=== PATIENT | male | born 1955 | race Caucasian/White ===

== ENCOUNTER 2024-04-21 11:20 | Inpatient (IN) | payer OTHER ==
[~2024-04-21] VITALS: Ht 177.8 cm; Wt 98.9 kg
--- NOTE | 2024-04-21 12:45 | DVH ---
CLINICAL INDICATION: TESTICLE PAIN DIABETIC FOOT TECHNIQUE: XY R FOOT 3 VIEW XRAY Comparison: None FINDINGS/IMPRESSION: There is no evidence of acute fracture or dislocation. Small volume soft-tissue gas in the region of the nailbed of the 1st digit.
[2024-04-21 12:52] LABS: Urine Bacteria None Seen /hpf (None Seen)
[2024-04-21 13:17] LABS: Urine Blood TRACE /uL (Negative); Urine Clarity Turbid (Clear); Urine Color Yellow (Yellow); Urine Mucus FEW (None Seen); Urine Protein, UAD 1+ (Negative); Urine Specific Gravity 1.016 (1.001-1.035); Urine Urobilinogen Normal (Negative); Urine WBC 34 /hpf (0 - 3); Urine WBC Clumps PRESENT /hpf (None Seen); Urine pH 5.5 (5.0-9.0)
--- NOTE | 2024-04-21 13:26 | DVH ---
ULTRASOUND OF SCROTUM AND CONTENTS. INDICATION: Right testicular pain COMPARISON: None TECHNIQUE: Multiple real-time grayscale sonographic and color and duplex Doppler images of the scrotu m and its contents were obtained. FINDINGS: The right testicle measures 4.6 x 3.2 x 2.2 cm. The left testicle measures 4.5 x 2.4 x 3.2 cm. Both testicles demonstrate homogeneous echotexture without evidence of focal lesions. The right epididymis measures 1.5 cm. The left epididymis measures 1.6 cm. Right epididymal head cyst measures 1.1 cm. Left epididymal head cyst measures 0.9 cm. Subsequent color and duplex Doppler interrogation of the testes demonstrated symmetric normal vascula r flow to both testicles. No focal areas of hyperemia were seen. Small volume fluid in the left inguinal canal. IMPRESSION: 1. No evidence of torsion, epididymitis, and/or orchitis.
[2024-04-21 14:13] LABS: Basophils # (auto) 0 10 ^3/uL (0-0.2); Basophils % (auto) 0.2 % (0.0-2.0); Eosinophils # (auto) 0 10 ^3/uL (0-0.8); Eosinophils % (auto) 0.2 % (0.0-7.0); Hematocrit 35.6 % (41.0-53.0); Hemoglobin 12.1 g/dL (13.5-17.5); Lymphocytes # (auto) 0.7 10 ^3/uL (0.4-5.4); Lymphocytes % (auto) 4.4 % (10.0-50.0); Mean Corpuscular Hemoglobin 28.2 pg (28.0-32.0); Mean Corpuscular Hgb Conc. 33.9 g/dL (32.0-36.0); Mean Corpuscular Volume 83.1 fL (80.0-100.0); Monocytes # (auto) 1.2 10 ^3/uL (0-1.3); Monocytes % (auto) 7.4 % (0.0-12.0); Neutrophils # (auto) 14.2 10 ^3/uL (1.6-8.6); Neutrophils % (auto) 87.8 % (37.0-80.0); Platelet Count (auto) 360 10^3/uL (140-450); Red Blood Cells 4.28 10^6/uL (4.5-5.90); Red Cell Distribution Width 14.3 % (11.8-14.3); White Blood Cell 16.1 10^3/uL (4.4-10.8)
--- NOTE | 2024-04-21 14:26 | ED.PDOC ---
History of Present Illness HPI Comments This 68 year old male presents to the emergency room secondary multiple complaints. His 1st complaint is a several month history of a ulcer to the plantar aspect of his right 1st toe. He has been followed by a wort extractor in [place]. However, over the last few weeks, history of been uncontrolled and he has increased erythema and discomfort to the 1st toe. He is also complaining of right scrotal pain and bilateral lower back pain. He denies fevers or chills but endorses general malaise. As modifying factors. Denies radiation of his symptoms. States his back pain is moderate to severe. Chief Complaint: Lower Extremity Time Seen by MD: 12:37 Primary Care Provider: OUT OF STATE Allergies: Coded Allergies: NO KNOWN ALLERGIES (Unverified , 04/21/24) Mode of Arrival: Ambulatory Constitutional: reports: fatigue, malaise, weakness; denies: chills, diaphoresis, fever, sweats EENTM: denies: blurred vision, double vision, ear bleeding, ear discharge, ear drainage, ear pain, ear ringing, eye pain, eye redness, hearing loss, mouth pain, mouth swelling, nasal discharge, nose bleeding, nose congestion, nose pain, photophobia, tearing, throat pain, throat swelling, voice changes, others Respiratory: denies: cough, hemoptysis, orthopnea, SOB at rest, shortness of breath, SOB with excertion, stridor, wheezing, others Cardiovascular: denies: chest pain, dizzy spells, diaphoresis, Dyspnea on exertion, edema, irregular heart beat, left arm pain, lightheadedness, palpitations, PND, syncope, others Gastrointestinal: denies: abdomen distended, abdominal pain, blood streaked bowels, constipated, diarrhea, dysphagia, difficulty swallowing, hematemesis, melena, nausea, poor appetite, poor fluid intake, rectal bleeding, rectal pain, vomiting, others Genitourinary: reports: burning, flank pain, pain, testicle pain; denies: i ncontinence, penile discharge, testicle swelling Neurological: denies: dizziness, fainting, numbness, paresthesia, speech problems, tingling, tremors Musculoskeletal: reports: back pain; denies: joint swelling, muscle pain, muscle stiffness Integumetry: denies: laceration, lesions, lumps Allergic/Immunocompromised: denies: Difficulty Healing Physical Exam General Appearance: No Apparent Distress, Normal HEENT: Normal ENT Inspection, Pharynx Normal, Scleral Icterus (L), TMs Normal Neck: Full Range of Motion, Non-Tender, Normal, Normal Inspection Respiratory: Chest Non-Tender, Lungs Clear, No Accessory Muscle Use, No Respiratory Distress, Normal Breath Sounds Cardiovascular: No Edema, No JVD, No Murmur, No Gallop, Normal Peripheral Pulses, Regular Rate/Rhythm Breast Exam: Deferred Gastrointestinal: No Organomegaly, Non Tender, No Pulsatile Mass, Normal Bowel Sounds, Soft Genitalia: Deferred Pelvic: Deferred Rectal: Deferred Extremities: Inflammation, Pedal edema, Swelling Neurologic: Alert, supervisor commissary production II-XII nml as Tested, No Motor Deficits, Normal Affect, Normal Mood, No Sensory Deficits Cerebellar Function: Normal Reflexes: NOT DONE Skin: Other (2 x 2 cm ulceration to the base of the right 1st toe. Erythema over the entirety of the toe with tracking up the foot.) Lymphatic: NOT DONE Was a procedure done? Was a procedure done?: No Differential Dx Considerations may include: Thrombophlebitis, diabetic ulcer, osteomyelitis X-Ray, Labs, Meds, VS Vital Signs Date Time Temp Pulse Resp B/P (MAP) Pulse Ox O2 Delivery O2 Flow Rate FiO2 04/21/24 15:44 66 16 96 Room Air* 0 21 04/21/24 15:44 99.0 66 16 121/65 (83) 96 99.0 04/21/24 12:00 98.9 73 16 106/48 (67) 96 Lab Test 04/21/24 13:48 04/21/24 12:09 04/21/24 12:08 Range/Units White Blood Count 16.1 H 4.4-10.8 10^3/uL Red Blood Count 4.28 L 4.5-5.90 10^6/uL Hemoglobin 12.1 L 13.5-17.5 g/dL Hematocrit 35.6 L 41.0-53.0 % Mean Corpuscular Volume 83.1 80.0-100.0 fL Mean Corpuscular Hemoglobin 28.2 28.0-32.0 pg Mean Corpuscular Hemoglobin Concent 33.9 32.0-36.0 g/dL Red Cell Distribution Width 14.3 11.8-14.3 % Platelet Count 360 140-450 10^3/uL Mean Platelet Volume 8.2 6.9-10.8 fL Neutrophils (%) (Auto) 87.8 H 37.0-80.0 % Lymphocytes (%) (Auto) 4.4 L 10.0-50.0 % Monocytes (%) (Auto) 7.4 0.0-12.0 % Eosinophils (%) (Auto) 0.2 0.0-7.0 % Basophils (%) (Auto) 0.2 0.0-2.0 % Neutrophils # (Auto) 14.2 H 1.6-8.6 10 ^3/uL Lymphocytes # (Auto) 0.7 0.4-5.4 10 ^3/uL Monocytes # (Auto) 1.2 0-1.3 10 ^3/uL Eosinophils # (Auto) 0 0-0.8 10 ^3/uL Basophils # (Auto) 0 0-0.2 10 ^3/uL Nucleated Red Blood Cells 0.0 % Sodium Level 135 L 136-145 mmol/L Potassium Level 4.3 3.5-5.1 mmol/L Chloride Level 102 98-107 mmol/L Carbon Dioxide Level 24 20-31 mmol/L Anion Gap 9 5-15 Blood Urea Nitrogen 37 H 9-23 mg/dL Creatinine 2.23 H 0.700-1.30 mg/dL Glomerular Filtration Rate Calc 32 >90 mL/min BUN/Creatinine Ratio 16.6 10.0-20.0 Serum Glucose 221 H 74-106 mg/dL Hemoglobin A1c 9.8 H <5.7 % A1C Calcium Level 8.8 8.7-10.4 mg/dL Total Bilirubin 0.7 0.2-1.0 mg/dL Aspartate Amino Transferase (AST) 17 13-40 U/L Alanine Aminotransferase (ALT) 21 7-40 U/L Alkaline Phosphatase 132 H 46-116 U/L Total Protein 6.2 5.7-8.2 g/dL Albumin 3.7 3.2-4.8 g/dL Beta-Hydroxybutyric Acid 0.325 < 0.4 mmol/L POC Glucose 216 H 70-106 mg/dl Urine Color Yellow Yellow Urine Clarity Turbid H Clear Urine pH 5.5 5.0-9.0 Urine Specific [place] 1.016 1.001-1.035 Urine Protein 1+ H Negative Urine Ketones Trace Negative Urine Blood Trace H Negative /uL Urine Nitrite Negative Negative Urine Bilirubin Negative Negative Urine Urobilinogen Normal Negative mg/dL Urine Leukocyte Esterase Negative Negative /uL Urine RBC 3 0 - 3 /hpf Urine WBC 34 0 - 3 /hpf Urine WBC Clumps Present None Seen /hpf Urine Squamous Epithelial Cells None seen <5 /hpf Urine Bacteria None seen None Seen /hpf Urine Mucus Few None Seen Urine Glucose 1+ H Normal mg/dL Current Medications Medications (Trade) Dose Ordered Sig/Torres Route Start Time Stop Time Status Last Admin Vancomycin HCl 200 ml @ 200 mls/hr ONCE ONCE IV 04/21/24 14:15 04/21/24 15:14 DC 04/21/24 15:39 X-Ray, Labs, Meds, VS Comment A 68-year-old male presents secondary to multiple complaints including scrotal pain in ulcer to the plantar aspect of the right 1st toe. The right toe is erythematous with tracking up the leg. He has a white count of 16.5. I am concerned the patient has thrombophlebitis and a diabetic ulcer to the foot. The patient was given 1 g of vancomycin in the ED and be admitted for further workup management of his diabetic ulcer. Time of 1ST Reevaluation: 14:18 Reevaluation 1ST: Unchanged Patient Education/Counseling: Diagnosis, Treatment, Prognosis Family Education/Counseling: No Family Present Sepsis Sepsis Reasesment Focused Exam Sepsis focused exam: focus exam completed Departure 1 Departure Time of Disposition: 14:19 Impression: Primary Impression: Diabetic ulcer of foot associated with diabetes mellitus due to underlying condition, with fat layer exposed Additional Impressions: Dysuria Back pain Disposition: [address] [place] [address] Admit to: Tele Condition: Fair Critical Care Note Critical Care Time?: No Stability Stability form required: No Heart Score Heart Score: Heart Score Response (Comments) Value History N/A 0 EKG N/A 0 Age N/A 0 Risk Factors N/A 0 Troponin N/A 0 Total 0 LINCOLN SONG BS Apr 21, 2024 14:26
[2024-04-21 14:42] LABS: Alanine Aminotransferase 21 U/L (7-40); Albumin 3.7 g/dL (3.2-4.8); Alkaline Phosphatase 132 U/L (46-116); Anion Gap 9 (5-15); Aspartate Aminotransferase 17 U/L (13-40); BUN/Creatinine Ratio 16.6 (10.0-20.0); Blood Urea Nitrogen 37 mg/dL (9-23); Calcium 8.8 mg/dL (8.7-10.4); Carbon Dioxide 24 mmol/L (20-31); Chloride 102 mmol/L (98-107); Glucose 221 mg/dL (74-106); Potassium 4.3 mmol/L (3.5-5.1); Sodium 135 mmol/L (136-145)
[2024-04-21 14:43] LABS: Bilirubin, Total 0.7 mg/dL (0.2-1.0); Total Protein 6.2 g/dL (5.7-8.2)
[2024-04-21] MEDS: VANCOMYCIN 1GM/200ML PREMIX 200 ML IV ONE (15:39)
[2024-04-21 15:44] VITALS: PULSE 66; RESP 16; O2SAT 96
[2024-04-21 16:15] VITALS: BP 135/61; PULSE 68; RESP 16; TEMP 99.6
--- NOTE | 2024-04-21 16:58 | DVHHP2 ---
History of Present Illness Reason for Visit: Diabetic foot ulcer History of Present Illness Carlos Du is a 68-year-old male with past medical history of hypertension, hyperlipidemia, diabetes, and depression, who came into the hospital for a diabetic foot ulcer, right testicular pain, and right back pain. Patient states that [place], he [place] here working. He has had this foot ulcer for several months and was following with podiatry back home, but has not been in to see anyone for a couple months. He states he injured his testicle a couple days ago getting out of his truck and at that time he also pulled a muscle in his back. Testicular ultrasound was completed by ER and came back normal. Review of Systems Constitutional: No: Fever, Chills, Sweats, Weakness, Malaise, Other Eyes: No: Pain, Vision change, Conjunctivae inflammation, Eyelid inflammation, Other, Redness ENT: No: Ear pain, Ear discharge, Nose pain, Nose discharge, Nose congestion, Mouth pain, Mouth swelling, Throat pain, Throat swelling, Other Respiratory: No: Cough, Dry, Shortness of breath, SOB with excertion, Wheezing, Hemoptysis, Pleuritic Pain, Sputum, Wheezing, Other Cardiovascular: No: Chest Pain, Palpitations, Orthopnea, Paroxysmal Noc. Dyspnea, Edema, Lt Headedness, Other Gastrointestinal: No: Nausea, Vomiting, Abdominal Pain, Diarrhea, Constipation, Melena, Hematochezia, Other Genitourinary: No Dysuria, No Frequency, No Incontinence, No Hematuria, No Retention; Other (testcular pain) Musculoskeletal: back pain; No: other, neck pain, shoulder pain, arm pain, hand pain, leg pain, foot pain Skin: Lesions (right great toe diabetic foot ulcer); No: Rash, Jaundice, Bruising, Other Neurological: No: Weakness, Numbness, Incoordination, Change in speech, Confusion, Seizures, Other Allergies: Coded Allergies: NO KNOWN ALLERGIES (Unverified , 04/21/24) Exam Vital Signs Vital Signs Date Time Temp Pulse Resp B/P (MAP) Pulse Ox O2 Delivery O2 Flow Rate FiO2 04/21/24 15:44 66 16 96 Room Air* 0 21 04/21/24 15:44 99.0 121/65 (83) 99.0 General Appearance: Alert, Oriented X3, Cooperative, moderate distress HEENT: Atraumatic, PERRLA Respiratory: Clear to auscultation, Normal air movement Cardiovascular: Regular rate, Normal S1, Normal S2 Abdominal: Normal bowel sounds, Soft, No tenderness Extremities: No clubbing, Normal pulses Skin: No rashes, No significant lesion (right great toe diabetic ulcer) Neuro: Normal gait, Normal speech, Strength at 5/5 X4 ext Psych/Mental Status: Mental status NL, Mood NL Labs/Xrays Labs Test 04/21/24 13:48 04/21/24 12:09 04/21/24 12:08 Range/Units White Blood Count 16.1 H 4.4-10.8 10^3/uL Red Blood Count 4.28 L 4.5-5.90 10^6/uL Hemoglobin 12.1 L 13.5-17.5 g/dL Hematocrit 35.6 L 41.0-53.0 % Mean Corpuscular Volume 83.1 80.0-100.0 fL Mean Corpuscular Hemoglobin 28.2 28.0-32.0 pg Mean Corpuscular Hemoglobin Concent 33.9 32.0-36.0 g/dL Red Cell Distribution Width 14.3 11.8-14.3 % Platelet Count 360 140-450 10^3/uL Mean Platelet Volume 8.2 6.9-10.8 fL Neutrophils (%) (Auto) 87.8 H 37.0-80.0 % Lymphocytes (%) (Auto) 4.4 L 10.0-50.0 % Monocytes (%) (Auto) 7.4 0.0-12.0 % Eosinophils (%) (Auto) 0.2 0.0-7.0 % Basophils (%) (Auto) 0.2 0.0-2.0 % Neutrophils # (Auto) 14.2 H 1.6-8.6 10 ^3/uL Lymphocytes # (Auto) 0.7 0.4-5.4 10 ^3/uL Monocytes # (Auto) 1.2 0-1.3 10 ^3/uL Eosinophils # (Auto) 0 0-0.8 10 ^3/uL Basophils # (Auto) 0 0-0.2 10 ^3/uL Nucleated Red Blood Cells 0.0 % Sodium Level 135 L 136-145 mmol/L Potassium Level 4.3 3.5-5.1 mmol/L Chloride Level 102 98-107 mmol/L Carbon Dioxide Level 24 20-31 mmol/L Anion Gap 9 5-15 Blood Urea Nitrogen 37 H 9-23 mg/dL Creatinine 2.23 H 0.700-1.30 mg/dL Glomerular Filtration Rate Calc 32 >90 mL/min BUN/Creatinine Ratio 16.6 10.0-20.0 Serum Glucose 221 H 74-106 mg/dL Hemoglobin A1c 9.8 H <5.7 % A1C Calcium Level 8.8 8.7-10.4 mg/dL Total Bilirubin 0.7 0.2-1.0 mg/dL Aspartate Amino Transferase (AST) 17 13-40 U/L Alanine Aminotransferase (ALT) 21 7-40 U/L Alkaline Phosphatase 132 H 46-116 U/L Total Protein 6.2 5.7-8.2 g/dL Albumin 3.7 3.2-4.8 g/dL Beta-Hydroxybutyric Acid 0.325 < 0.4 mmol/L POC Glucose 216 H 70-106 mg/dl Urine Color Yellow Yellow Urine Clarity Turbid H Clear Urine pH 5.5 5.0-9.0 Urine Specific [place] 1.016 1.001-1.035 Urine Protein 1+ H Negative Urine Ketones Trace Negative Urine Blood Trace H Negative /uL Urine Nitrite Negative Negative Urine Bilirubin Negative Negative Urine Urobilinogen Normal Negative mg/dL Urine Leukocyte Esterase Negative Negative /uL Urine RBC 3 0 - 3 /hpf Urine WBC 34 0 - 3 /hpf Urine WBC Clumps Present None Seen /hpf Urine Squamous Epithelial Cells None seen <5 /hpf Urine Bacteria None seen None Seen /hpf Urine Mucus Few None Seen Urine Glucose 1+ H Normal mg/dL XY R FOOT 3 VIEW XRAY Comparison: None FINDINGS/IMPRESSION: There is no evidence of acute fracture or dislocation. Small volume soft-tissue gas in the region of the nailbed of the 1st digit. ULTRASOUND OF SCROTUM AND CONTENTS. FINDINGS: The right testicle measures 4.6 x 3.2 x 2.2 cm. The left testicle measures 4.5 x 2.4 x 3.2 cm. Both testicles demonstrate homogeneous echotexture without evidence of focal l esions. The right epididymis measures 1.5 cm. The left epididymis measures 1.6 cm. Right epididymal head cyst measures 1.1 cm. Left epididymal head cyst measures 0.9 cm. Subsequent color and duplex Doppler interrogation of the testes demonstrated symmetric normal vascular flow to both testicles. No focal areas of hyperemia were seen. Small volume fluid in the left inguinal canal. IMPRESSION: 1. No evidence of torsion, epididymitis, and/or orchitis. Assessment/Plan Assessment/Plan Assessment: Diabetic ulcer of foot, Hypertension, Hyperlipidemia, Uncontrolled diabetes, Depression, Plan: Admit to Med-Surg, IV hydration, IV antibiotics, Consider CT of right foot ulcer if not improving, Consider podiatry consult if ulcer is not improving, Home medications reconciled, Accu checks Q AC&HS with sliding scale, Plan discussed with: Patient My Orders Orders - MARY ESTRELLAP Procedure Category Date Status Time Admit ADMIT 04/21/24 Verified 16:51 Code Status CODE 04/21/24 Verified 16:51 2 Gm Sodium Diet DIET 04/21/24 Verified Dinner Sodium Chloride Lock PHA 04/21/24 Verified (Saline Lock Ns) 22:00 Hydrocodone-Acet PHA 04/21/24 Verified 5/325mg Tab (Peoa 17:00 Ondansetron Hcl PHA 04/21/24 Verified (Zofran) 17:00 Docusate Sodium PHA 04/21/24 Verified Capsule (Colace 17:00 Complete Blood Count LAB 04/22/24 Verified 04:00 Comprehensive LAB 04/22/24 Verified Metabolic Panel 04:00 Condition: Serious LETI 04/21/24 Verified 16:51 Acetaminophen Tablet PHA 04/21/24 Verified (Tylenol Tablet) 17:00 Morphine Sulfate PHA 04/21/24 Verified Injection 17:00 Nitroglycerin PHA 04/21/24 Verified Sublingual (Ntrostat 17:00 Morphine Sulfate PHA 04/21/24 Verified Injection 17:00 Stat Ekg For Chest [facility] 04/21/24 Verified Pain 16:51 Notify Md Of Changes [facility] 04/21/24 Verified From Base 16:51 Dental Detail Representative For [facility] 04/21/24 Verified 24 Hours 16:51 Emergency Dysrhythmia [facility] 04/21/24 Verified Protocol 16:51 Rhythm Strips Once [facility] 04/21/24 Verified Every Shift 16:51 Oxygen By Nasal RT 04/21/24 Verified Cannula 16:51 Zosyn Extended PHA 04/21/24 Verified Infusion 22:00 NS PHA 04/21/24 Verified 17:00 * Wound Consult CONS 04/21/24 Verified Wound Culture W/ Gs RUT 10/23/24 Verified 16:51 Date of Service: Apr 21, 2024 Billing Provider: MARY ESTRELLA Common Visit Codes: [id number] INP/OBS CARE (MOD) MARY ESTRELLA Apr 21, 2024 16:58
[2024-04-21] MEDS ORDERED: ACETAMINOPHEN 325 MG TAB PO PRN (17:00)
[2024-04-21] MEDS ORDERED: NITROGLYCERIN 0.4 MG SL TAB SL PRN (17:00)
[2024-04-21] MEDS: SODIUM CHLORIDE 0.9% 1,000 ML IV ONE ×2 (17:00→18:15)
[2024-04-21] MEDS ORDERED: MORPHINE SULFATE INJ 2 MG/ml SYRG IV PRN (17:00)
[2024-04-21] MEDS ORDERED: ONDANSETRON HCL 4 MG/2 ML VIAL IV PRN (17:00)
[2024-04-21] MEDS ORDERED: DEXTROSE (50%) 50ML SYRG IV PRN (17:15)
[2024-04-21] MEDS ORDERED: AMLO1TAB23 PO (17:42)
[2024-04-21] MEDS ORDERED: DULO1CAP5 PO (17:42)
[2024-04-21] MEDS ORDERED: LISI40TA16 PO (17:42)
[2024-04-21] MEDS ORDERED: INSUINJ37 SC (17:42)
[2024-04-21 18:06] VITALS: BP 135/61; PULSE 68; RESP 16; TEMP 99.6; O2SAT 96
[2024-04-21 20:00] VITALS: PULSE 73; RESP 17; O2SAT 96
[2024-04-21] MEDS: PIPERACILLIN-TAZOB 3.375GM 100 ML IV SCH (20:30)
[2024-04-21 21:00] VITALS: BP 140/60; PULSE 73; RESP 17; TEMP 100; O2SAT 96
[2024-04-21] MEDS ORDERED: SODIUM CHLOR 0.9% PF (SALINE LOCK) 10ML VIAL/SYR IV SCH (22:00)
[2024-04-21] MEDS: DULoxetine HCL 30 MG CAP PO SCH (22:03)
[2024-04-21] MEDS: InsuLIN REG 1unit/0.01ml Soln (100units/ml) SC SCH (22:04)
[2024-04-21] MEDS: ACCU-CHEK COMFORT CURVE STRIP VI SCH (22:04)
[2024-04-22] VITALS (7 sets, daily range): BP systolic 95–146; BP diastolic 56–82; PULSE 69–91; RESP 17–22; TEMP 98–100.3; O2SAT 91–97
[2024-04-22] MEDS: MORPHINE SULFATE INJ 2 MG/ml SYRG IV PRN (00:33)
[2024-04-22 05:50] LABS: Basophils # (auto) 0 10 ^3/uL (0-0.2); Basophils % (auto) 0.2 % (0.0-2.0); Eosinophils # (auto) 0 10 ^3/uL (0-0.8); Eosinophils % (auto) 0.3 % (0.0-7.0); Hemoglobin 10.8 g/dL (13.5-17.5); Lymphocytes # (auto) 1.1 10 ^3/uL (0.4-5.4); Lymphocytes % (auto) 7.6 % (10.0-50.0); Mean Corpuscular Hemoglobin 27.7 pg (28.0-32.0); Mean Corpuscular Hgb Conc. 33.7 g/dL (32.0-36.0); Mean Corpuscular Volume 82.3 fL (80.0-100.0); Monocytes # (auto) 1.6 10 ^3/uL (0-1.3); Monocytes % (auto) 11.6 % (0.0-12.0); Neutrophils # (auto) 11.3 10 ^3/uL (1.6-8.6); Neutrophils % (auto) 80.3 % (37.0-80.0); Nucleated Red Blood Cells % 0.1 %; Platelet Count (auto) 354 10^3/uL (140-450); Red Blood Cells 3.89 10^6/uL (4.5-5.90); Red Cell Distribution Width 13.8 % (11.8-14.3)
[2024-04-22 05:56] LABS: Alanine Aminotransferase 16 U/L (7-40); Albumin 3.6 g/dL (3.2-4.8); Alkaline Phosphatase 111 U/L (46-116); Anion Gap 10 (5-15); Aspartate Aminotransferase 12 U/L (13-40); BUN/Creatinine Ratio 15.9 (10.0-20.0); Blood Urea Nitrogen 35 mg/dL (9-23); Calcium 8.7 mg/dL (8.7-10.4); Carbon Dioxide 22 mmol/L (20-31); Chloride 103 mmol/L (98-107); Glucose 179 mg/dL (74-106); Potassium 3.8 mmol/L (3.5-5.1); Sodium 135 mmol/L (136-145)
[2024-04-22 05:57] LABS: Bilirubin, Total 0.6 mg/dL (0.2-1.0); Total Protein 6.3 g/dL (5.7-8.2)
[2024-04-22] MEDS: InsuLIN REG 1unit/0.01ml Soln (100units/ml) SC SCH (06:32)
[2024-04-22] MEDS: INSULIN LANTUS (GLARGINE) 1 /0.01ml (100units/ml) SC SCH (09:35)
[2024-04-22] MEDS: LISINOPRIL 20 MG TAB PO SCH (09:43)
[2024-04-22] MEDS: amLODIPine BESYLATE 5 MG TAB PO SCH (09:43)
[2024-04-22] MEDS: HYDROcodone-ACET 5/325MG TAB PO PRN (12:09)
[2024-04-22] MEDS: CLINDAMYCIN 300MG IV 50 ML IV SCH (16:16)
--- NOTE | 2024-04-22 16:25 | DVHPN2 ---
Subjective Patient continues to report having right foot pain, localized in his great toe. Describes it as throbbing. Reviewed: Care Plan, H&P, Labs, Medications Changes from previous H/P or p: No Changes Eyes: No Pain, No Vision change, No Conjunctivae inflammation, No Eyelid inflammation, No Other, No Redness ENT: No Ear pain, No Ear discharge, No Nose pain, No Nose discharge, No Nose congestion, No Mouth pain, No Mouth swelling, No Throat pain, No Throat swelling, No Other Cardiovascular: No Chest Pain, No Palpitations, No Orthopnea, No Paroxysmal Noc. Dyspnea, No Edema, No Lt Headedness, No Other Respiratory: No Cough, No Dry, No Shortness of breath, No SOB with excertion, No Wheezing, No Hemoptysis, No Pleuritic Pain, No Sputum, No Other Gastrointestinal: No Nausea, No Vomiting, No Abdominal Pain, No Diarrhea, No Constipation, No Melena, No Hematochezia, No Other Genitourinary: No Dysuria, No Frequency, No Incontinence, No Hematuria, No Retention; Other (testcular pain) Musculoskeletal: No other, No neck pain, No shoulder pain, No arm pain; back pain; No hand pain, No leg pain, No foot pain Skin: No Rash; Lesions (right great toe diabetic foot ulcer); No Jaundice, No Bruising, No Other Objective Vitals Vital Signs Date Time Temp Pulse Resp B/P (MAP) Pulse Ox O2 Delivery O2 Flow Rate FiO2 04/22/24 12:51 99.2 71 21 146/69 (94) 94 99.2 04/22/24 08:00 Room Air* 0 21 Intake/Output Intake and Output 04/22/24 07:00 Intake Total 1075 ml Balance 1075 ml Intake Oral 875 ml IV Total 200 ml # Voids 1 General Appearance: Alert, Oriented X3 HEENT: Atraumatic, PERRLA Lungs: Clear to auscultation, Normal air movement Cardiovascular: Normal S1, Normal S2 Musculoskeletal: Normal sensory function, Normal motor function Skin: Wounds (See nurse notes and pictures) Psych/Mental Status: Mental status NL, Mood NL Medications Current Medications Medications Dose Ordered Sig/Torres Route Start Time Stop Time Status Last Admin Dose Admin Acetaminophen/ Hydrocodone Bitart 1 tab Q4HP PRN PO 04/21/24 17:00 04/22/24 12:09 1 TAB Ondansetron HCl 4 mg Q4HP PRN IV 04/21/24 17:00 Docusate Sodium 100 mg BIDPRN PRN PO 04/21/24 17:00 Acetaminophen 650 mg Q6HP PRN PO 04/21/24 17:00 Morphine Sulfate 2 mg Q4HPRN PRN IV 04/21/24 17:00 04/22/24 00:33 2 MG Nitroglycerin 0.4 mg Q5MINP PRN SL 04/21/24 17:00 Morphine Sulfate 2 mg Q30M PRN IV 04/21/24 17:00 Piperacillin Sod/ Tazobactam Sod 100 ml @ 25 mls/hr Q12H IV 04/21/24 20:00 04/22/24 09:28 25 MLS/HR Diagnostic Test (Pha) 1 strip ACHS 04/21/24 22:00 04/22/24 11:56 1 STRIP Insulin Human Regular HS SC 04/21/24 22:00 04/21/24 22:04 4 UNITS Insulin Human Regular AC SC 04/22/24 07:00 04/22/24 12:06 3 UNITS Dextrose 50 ml UD PRN IV 04/21/24 17:15 Amlodipine Besylate 10 mg DAILY PO 04/22/24 10:00 04/22/24 09:43 10 MG Insulin Glargine 50 units DAILY SC 04/22/24 10:00 04/22/24 09:35 50 UNITS Lisinopril 40 mg DAILY PO 04/22/24 10:00 04/22/24 09:43 40 MG Duloxetine HCl 30 mg BID PO 04/21/24 22:00 04/22/24 09:43 30 MG Clindamycin Phosphate 50 ml @ 50 mls/hr Q8HR IV 04/22/24 14:59 04/22/24 16:16 50 MLS/HR Laboratory Results Laboratory Tests 04/22/24 05:17 Chemistry Test 04/22/24 05:17 Albumin 3.6 g/dL (3.2-4.8) Calcium Level 8.7 mg/dL (8.7-10.4) Total Protein 6.3 g/dL (5.7-8.2) LFT Test 04/22/24 05:17 Alanine Aminotransferase (ALT) 16 U/L (7-40) Alkaline Phosphatase 111 U/L (46-116) Aspartate Amino Transferase (AST) 12 U/L (13-40) L Total Bilirubin 0.6 mg/dL (0.2-1.0) Urinalysis Test 04/21/24 12:08 Urine Color Yellow (Yellow) Urine Clarity Turbid (Clear) H Urine pH 5.5 (5.0-9.0) Urine Specific [place] 1.016 (1.001-1.035) Urine Protein 1+ (Negative) H Urine Ketones Trace (Negative) Urine Blood Trace /uL (Negative) H Urine Nitrite Negative (Negative) Urine Bilirubin Negative (Negative) Urine Urobilinogen Normal mg/dL (Negative) Urine Leukocyte Esterase Negative /uL (Negative) Urine RBC 3 /hpf (0 - 3) Urine WBC 34 /hpf (0 - 3) Urine WBC Clumps Present /hpf (None Seen) Urine Squamous Epithelial Cells None seen /hpf (<5) Urine Bacteria None seen /hpf (None Seen) Urine Mucus Few (None Seen) Urine Glucose 1+ mg/dL (Normal) H Labs and/or images reviewed: Labs reviewed by me, Image(s) reviewed by me Assessment/Plan Assessment/Plan Impression: -sepsis -diabetic foot wound, rule out osteomyelitis -chronic kidney disease stage IIIB -peripheral arterial disease -peripheral neuropathy -diabetic retinopathy -obesity -primary hypertension Plan: -podiatry consultation -continue Zosyn, and clindamycin -continue gentle IV hydration -check ESR, CRP -pain management: Soma for back spasms, [place] for foot pain -antihypertensives -repeat labs in a.m. -wound care consultation -further course of care per recommendations by Podiatry Total time spent with patient discussing and formulating plan of care: 35 minutes. This medical document was created using an electronic medical record system with [employer] dictation system. Although this document has been carefully reviewed, there may still be some phonetic and typographical errors. These areas are purely typographical due to imperfections of the software programs, and do not reflect any compromise in the patient's medical care. Plan discussed with: Patient, Other (RN) My Orders Orders - DARCIE THORNTON NP Procedure Category Date Status Time Cleanse Wound With LETI 04/22/24 In Process Wound Clean 10:08 Erythrocyte LAB 04/22/24 In Process Sedimentation Rate 14:50 Clindamycin 300mg Iv PHA 10/24/24 In Process (Cleocin Iv) 14:59 Blood Culture RUT 04/22/24 Transmitted 16:19 *Podiatry Consult CONS 04/22/24 Transmitted Mehreenon(Dvmg) 16:19 Basic Metabolic Panel LAB 04/23/24 Verified 04:00 Complete Blood Count LAB 04/23/24 Verified 04:00 Date of Service: Apr 22, 2024 Billing Provider: DARCIE THORNTON NP Common Visit Codes: [id number] INP/OBS CARE(HIGH) DARCIE THORNTON NP Apr 22, 2024 16:25
[2024-04-22] MEDS ORDERED: HYDROcodone-ACET 5/325MG TAB PO PRN (16:30)
[2024-04-22 16:38] LABS: Erythrocyte Sedimentation Rate 92 mm/hr (0-20)
[2024-04-22] MEDS ORDERED: ACETAMINOPHEN 325 MG TAB PO PRN (16:45)
[2024-04-23] VITALS (9 sets, daily range): BP systolic 129–153; BP diastolic 47–76; PULSE 61–73; RESP 16–20; TEMP 98–99.6; O2SAT 91–97
[2024-04-23 06:02] LABS: Chloride 105 mmol/L (98-107); Potassium 3.7 mmol/L (3.5-5.1); Sodium 135 mmol/L (136-145)
[2024-04-23 06:03] LABS: Anion Gap 9 (5-15); Calcium 8.9 mg/dL (8.7-10.4); Carbon Dioxide 21 mmol/L (20-31)
[2024-04-23 06:08] LABS: BUN/Creatinine Ratio 16.8 (10.0-20.0); Blood Urea Nitrogen 30 mg/dL (9-23); Glucose 126 mg/dL (74-106)
[2024-04-23 06:17] LABS: Basophils # (auto) 0 10 ^3/uL (0-0.2); Basophils % (auto) 0.3 % (0.0-2.0); Eosinophils # (auto) 0 10 ^3/uL (0-0.8); Eosinophils % (auto) 0.2 % (0.0-7.0); Hematocrit 32.8 % (41.0-53.0); Hemoglobin 11.2 g/dL (13.5-17.5); Mean Corpuscular Hemoglobin 28.1 pg (28.0-32.0); Mean Corpuscular Hgb Conc. 34.2 g/dL (32.0-36.0); Mean Corpuscular Volume 82.2 fL (80.0-100.0); Monocytes # (auto) 1.4 10 ^3/uL (0-1.3); Monocytes % (auto) 9.8 % (0.0-12.0); Neutrophils # (auto) 11.9 10 ^3/uL (1.6-8.6); Neutrophils % (auto) 82.7 % (37.0-80.0); Platelet Count (auto) 448 10^3/uL (140-450); Red Blood Cells 3.99 10^6/uL (4.5-5.90); Red Cell Distribution Width 13.9 % (11.8-14.3); White Blood Cell 14.4 10^3/uL (4.4-10.8)
--- NOTE | 2024-04-23 09:50 | DVHINCON2 ---
Date Seen: Apr 23, 2024 Reason for Consultation Right foot wound History of Present Illness Carlos Du is a 68-year-old male with past medical history of hypertension, hyperlipidemia, diabetes, and depression, who came into the hospital for a diabetic foot ulcer, right testicular pain, and right back pain. Patient states that [place], he [place] here working. He has had this foot ulcer for several months and was following with podiatry back home, but has not been in to see anyone for a couple months. He states he injured his testicle a couple days ago getting out of his truck and at that time he also pulled a muscle in his back. Testicular ultrasound was completed by ER and came back normal. Past Medical History See H&P Past Surgical History See H&P Family History: Diabetes mellitus G8 MOTHER G8 FATHER Allergies: Coded Allergies: NO KNOWN ALLERGIES (Unverified , 04/21/24) Home Meds Reported Medications Duloxetine HCl (Duloxetine HCl) 30 Mg Cap, 1 CAP PO BID 04/21/24 Insulin Glargine (Lantus Solostar) 100 Unit/Ml Inj, 50 UNITS SC DAILY 04/21/24 Lisinopril (Lisinopril) 40 Mg Tab, 1 TAB PO DAILY 04/21/24 Amlodipine Besylate (Amlodipine Besylate) 10 Mg Tab, 1 TAB PO DAILY 04/21/24 Current Medications Current Medications Medications (Trade) Dose Ordered Sig/Torres Route PRN Reason Start Time Stop Time Status Last Admin Amlodipine Besylate (Norvasc Tablet) 10 mg DAILY PO 04/22/24 10:00 04/23/24 09:34 Insulin Glargine (Lantus) 50 units DAILY SC 04/22/24 10:00 04/22/24 09:35 Lisinopril (Zestril Tablet) 40 mg DAILY PO 04/22/24 10:00 04/23/24 09:35 Clindamycin Phosphate 50 ml @ 50 mls/hr Q8HR IV 04/22/24 14:59 04/23/24 05:55 Acetaminophen/ Hydrocodone Bitart ([place] 5/325MG Tab) 1 tab Q6HPRN PRN PO MILD PAIN (1-3 PAIN SCALE) 04/22/24 16:30 Carisoprodol (Soma Tablet) 350 mg [id number] PRN PO FOR MUSCLE SPASM 04/22/24 16:30 Acetaminophen (Tylenol Tablet) 650 mg Q6HP PRN PO TEMP>100.4 04/22/24 16:45 Vital Signs Vital Signs Date Time Temp Pulse Resp B/P (MAP) Pulse Ox O2 Delivery O2 Flow Rate FiO2 04/23/24 09:35 147/76 04/23/24 05:00 98.0 64 16 94 98.0 04/22/24 20:00 Room Air* 0 21 Physical Exam DERMATOLOGIC EXAM: - Skin is dry and cool to the touch dry bilaterally. - Nails 1-5 of the bilateral foot are thickened, discolored, dystrophic, and tender to palpate with subungual debris - Hair loss noted to bilateral feet Wound #1: Location: A medial hallux Measurements: Length 1 cm x width 1 cm x depth on cm. Wound margins: Hyperkeratotic. Wound base: Full thickness. General Appearance: Fibrotic hyperkeratotic Probes to Bone: Yes Purulent drainage: No Serous drainage: No Erythema: Wound VASCULAR EXAM: - DP and PT pulses are palpable bilaterally. 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 - Feet are cool to touch compared to lower legs bilaterally. NEUROLOGIC EXAM: - Normal light touch sensation to the superficial peroneal, deep peroneal, sural, saphenous, and tibial nerve branches. - Protective sensation is diminished as tested with a 5.07 10g [place]-Sam bilaterally. MUSCULOSKELETAL EXAM: - No gross deformities - Muscle strength is 5/5 and active motion is pain-free and symmetrical bilaterally - No pain or crepitation with passive range of motion bilaterally to all major pedal joints Labs/Diagnostic Data Labs Test 04/23/24 09:13 04/23/24 05:27 04/22/24 05:17 04/21/24 19:32 Range/Units POC Glucose 146 H 70-106 mg/dl White Blood Count 14.4 H 4.4-10.8 10^3/uL Red Blood Count 3.99 L 4.5-5.90 10^6/uL Hemoglobin 11.2 L 13.5-17.5 g/dL Hematocrit 32.8 L 41.0-53.0 % Mean Corpuscular Volume 82.2 80.0-100.0 fL Mean Corpuscular Hemoglobin 28.1 28.0-32.0 pg Mean Corpuscular Hemoglobin Concent 34.2 32.0-36.0 g/dL Red Cell Distribution Width 13.9 11.8-14.3 % Platelet Count 448 140-450 10^3/uL Mean Platelet Volume 7.8 6.9-10.8 fL Neutrophils (%) (Auto) 82.7 H 37.0-80.0 % Lymphocytes (%) (Auto) 7.0 L 10.0-50.0 % Monocytes (%) (Auto) 9.8 0.0-12.0 % Eosinophils (%) (Auto) 0.2 0.0-7.0 % Basophils (%) (Auto) 0.3 0.0-2.0 % Neutrophils # (Auto) 11.9 H 1.6-8.6 10 ^3/uL Lymphocytes # (Auto) 1.0 0.4-5.4 10 ^3/uL Monocytes # (Auto) 1.4 H 0-1.3 10 ^3/uL Eosinophils # (Auto) 0 0-0.8 10 ^3/uL Basophils # (Auto) 0 0-0.2 10 ^3/uL Nucleated Red Blood Cells 0.0 % Sodium Level 135 L 136-145 mmol/L Potassium Level 3.7 3.5-5.1 mmol/L Chloride Level 105 98-107 mmol/L Carbon Dioxide Level 21 20-31 mmol/L Anion Gap 9 5-15 Blood Urea Nitrogen 30 H 9-23 mg/dL Creatinine 1.79 H 0.700-1.30 mg/dL Glomerular Filtration Rate Calc 41 >90 mL/min BUN/Creatinine Ratio 16.8 10.0-20.0 Serum Glucose 126 H 74-106 mg/dL Calcium Level 8.9 8.7-10.4 mg/dL Erythrocyte Sedimentation Rate 92 H 0-20 mm/hr Total Bilirubin 0.6 0.2-1.0 mg/dL Aspartate Amino Transferase (AST) 12 L 13-40 U/L Alanine Aminotransferase (ALT) 16 7-40 U/L Alkaline Phosphatase 111 46-116 U/L C-Reactive Protein High Sensitivity > 20.00 H <1.0 mg/dL Total Protein 6.3 5.7-8.2 g/dL Albumin 3.6 3.2-4.8 g/dL Test 04/21/24 13:48 04/21/24 12:08 Range/Units Hemoglobin A1c 9.8 H <5.7 % A1C Beta-Hydroxybutyric Acid 0.325 < 0.4 mmol/L Urine Color Yellow Yellow Urine Clarity Turbid H Clear Urine pH 5.5 5.0-9.0 Urine Specific [place] 1.016 1.001-1.035 Urine Protein 1+ H Negative Urine Ketones Trace Negative Urine Blood Trace H Negative /uL Urine Nitrite Negative Negative Urine Bilirubin Negative Negative Urine Urobilinogen Normal Negative mg/dL Urine Leukocyte Esterase Negative Negative /uL Urine RBC 3 0 - 3 /hpf Urine WBC 34 0 - 3 /hpf Urine WBC Clumps Present None Seen /hpf Urine Squamous Epithelial Cells None seen <5 /hpf Urine Bacteria None seen None Seen /hpf Urine Mucus Few None Seen Urine Glucose 1+ H Normal mg/dL Assessment ASSESSMENT: Patient is a 68-year-old male seen on the floor for a worsening right foot wound PLAN: - The patients chart was reviewed, clinical findings were discussed with the patient, the etiologies of the conditions were discussed in detail, and a treatment plan was agreed to at this time, with both oral and written instructions provided. - discussed with the patient that there is concern for deeper infection with the free air seen the x-ray - recommend we take him to the OR to perform an incision and drainage and clean out the wound and then attempt to close it - patient has been NPO since midnight - we will get cultures in the OR - continue antibiotics - patient likely can be discharged after procedure All questions were answered and concerns addressed to the patient's satisfaction. The patient was given the phone number to the clinic and was told how to make contact with the clinic should any concerns or questions arise. Patient understands that if any questions or concerns arise prior to the next appointment, we should be contacted immediately. FOLLOW-UP: We will follow inpatient Problems(with codes): (1) Back pain (2) Dysuria (3) Diabetic ulcer of foot associated with diabetes mellitus due to underlying condition, with fat layer exposed Plan discussed with: Patient Date of Service: Apr 23, 2024 Billing Provider: GILMAR SMITH DPM Common Visit Codes: [id number] INP/OBS CARE (MOD) GILMAR SMITH DPM Apr 23, 2024 09:50
--- NOTE | 2024-04-23 09:56 | DVH ---
CHEST RADIOGRAPH Indication:PRE OP /pain Technique: Single frontal view of the chest was obtained Comparison: None FINDINGS: Lines and Tubes: None Lungs: No focal consolidation. Pleura: No effusion. No pneumothorax. Cardiomediastinal contours: Unremarkable Bones: No acute osseous abnormality. IMPRESSION: No acute cardiopulmonary disease.
[2024-04-23 10:23] LABS: INR 1.04 (0.9-1.15); Partial Thromboplastin Time 38.7 SEC (24.5-34.5)
[2024-04-23] MEDS: BUPIVACAINE HCL 50 ML ONE (10:35)
[2024-04-23] MEDS ORDERED: ONDANSETRON HCL 4 MG/2 ML VIAL ONE (10:42)
[2024-04-23] MEDS ORDERED: PROPOFOL 10 MG/ML 20 ML IV ONE (10:42)
[2024-04-23] MEDS: VANCOMYCIN HCL 1000 MG VL ONE (10:56)
--- NOTE | 2024-04-23 11:06 | DVHOP2 ---
Operative Report - 2 Report Details Date: 04/23/24 Preop Diagnosis: 1. Right foot abscess 2. Right foot chronic diabetic ulcer 3. Right foot cellulitis Postop Diagnosis: Same as preop Surgeon: Gilmar Smith MD Anesthesiologist: See anesthesia Anesthesia: Mac Drains: None Implant: None Consent: The patient was informed of the risks and benefits of the procedure. These include but are not limited to complications of anesthesia, postoperative infection, incomplete relief of symptoms, recurrence of symptoms, damage to blood vessels, nerves and tendons, deep venous thrombosis, pulmonary embolism and possible need for repeat surgery in the future. Complications: None Estimated Blood Loss: Minimal Fluids: See anesthesia Findings: Proximally 2 cc of purulent drainage from the right medial hallux Indications for Surgery: Worsening right foot wound Name of Procedure Performed 1. Right foot I&D to bone (09843) Procedure Details Procedure Details: PRE-PROCEDURE INFORMATION: In the pre-op holding area, the extremity to be operated on was clearly marked and the patient verified correct laterality of the marking. The patient was transferred to the OR table and placed in a supine position. A timeout was performed in which identification of the correct patient , procedure, location, and materials was done. The right foot and leg were prepped and draped in normal sterile fashion. DESCRIPTION OF PROCEDURE: Attention was directed to the right medial hallux where area of fluctuance was noted. An incision was made over this area and was deepened through blunt dissection. The incision was deepened to the level of abscess and bone. Care was taken to the dissection to avoid any neurovascular and tendinous structures. The incision was deepened to the the abscess. The abscess appeared to be purulent fluid consistent with pus, with a proximally 2 cc of drainage. After the abscess was drained, the area was irrigated with 3 L normal saline using cysto tubing. Deep cultures were then obtained from the medial ankle. The area was then inspected and any areas of tracking, especially along the tendons were also drained. The wound appeared to be clean it was decided to close with vancomycin powder in the incision. The wound was closed with 2-0 nylon. A dry sterile dressing was placed on the surgical extremity. The patient was placed in a postop shoe. POSTOPERATIVE INFORMATION: The patient tolerated the above noted procedure and anesthesia well and was transferred to the PACU with vital signs stable, and vascular status intact with capillary refill intact to all digits. Patient can return to the floor. Patient can be discharged on p.o. antibiotics. Patient can weightbear in the postoperative shoe. Condition Good Disposition Still a Patient GILMAR SMITH DPM Apr 23, 2024 11:06
--- NOTE | 2024-04-23 12:02 | DVHPN2 ---
Subjective Patient continues to report having right foot pain, localized in his great toe. Describes it as throbbing. Reviewed: Care Plan, H&P, Labs, Medications Changes from previous H/P or p: No Changes Eyes: No Pain, No Vision change, No Conjunctivae inflammation, No Eyelid inflammation, No Other, No Redness ENT: No Ear pain, No Ear discharge, No Nose pain, No Nose discharge, No Nose congestion, No Mouth pain, No Mouth swelling, No Throat pain, No Throat swelling, No Other Cardiovascular: No Chest Pain, No Palpitations, No Orthopnea, No Paroxysmal Noc. Dyspnea, No Edema, No Lt Headedness, No Other Respiratory: No Cough, No Dry, No Shortness of breath, No SOB with excertion, No Wheezing, No Hemoptysis, No Pleuritic Pain, No Sputum, No Other Gastrointestinal: No Nausea, No Vomiting, No Abdominal Pain, No Diarrhea, No Constipation, No Melena, No Hematochezia, No Other Genitourinary: No Dysuria, No Frequency, No Incontinence, No Hematuria, No Retention; Other (testcular pain) Musculoskeletal: No other, No neck pain, No shoulder pain, No arm pain; back pain; No hand pain, No leg pain, No foot pain Skin: No Rash; Lesions (right great toe diabetic foot ulcer); No Jaundice, No Bruising, No Other Objective Vitals Vital Signs Date Time Temp Pulse Resp B/P (MAP) Pulse Ox O2 Delivery O2 Flow Rate FiO2 04/23/24 09:35 147/76 04/23/24 09:00 99.2 69 96 99.2 04/23/24 05:00 16 04/22/24 20:00 Room Air* 0 21 Intake/Output Intake and Output 04/23/24 07:00 Intake Total 1470 ml Output Total 350 ml Balance 1120 ml Intake Oral 1320 ml IV Total 150 ml Output Urine Total 350 ml # Voids 4 General Appearance: Alert, Oriented X3, Cooperative, mild distress HEENT: Atraumatic, PERRLA Lungs: Clear to auscultation, Normal air movement Cardiovascular: Normal S1, Normal S2 Musculoskeletal: Normal sensory function, Normal motor function Skin: Wounds (See nurse notes and pictures) Psych/Mental Status: Mental status NL, Mood NL Medications Current Medications Medications Dose Ordered Sig/Torres Route Start Time Stop Time Status Last Admin Dose Admin Acetaminophen/ Hydrocodone Bitart 1 tab Q4HP PRN PO 04/21/24 17:00 04/23/24 05:55 1 TAB Ondansetron HCl 4 mg Q4HP PRN IV 04/21/24 17:00 Docusate Sodium 100 mg BIDPRN PRN PO 04/21/24 17:00 Morphine Sulfate 2 mg Q4HPRN PRN IV 04/21/24 17:00 04/22/24 00:33 2 MG Nitroglycerin 0.4 mg Q5MINP PRN SL 04/21/24 17:00 Morphine Sulfate 2 mg Q30M PRN IV 04/21/24 17:00 Piperacillin Sod/ Tazobactam Sod 100 ml @ 25 mls/hr Q12H IV 04/21/24 20:00 04/23/24 09:34 25 MLS/HR Diagnostic Test (Pha) 1 strip ACHS 04/21/24 22:00 04/23/24 07:03 1 STRIP Insulin Human Regular HS SC 04/21/24 22:00 04/21/24 22:04 4 UNITS Insulin Human Regular AC SC 04/22/24 07:00 04/22/24 16:39 3 UNITS Dextrose 50 ml UD PRN IV 04/21/24 17:15 Amlodipine Besylate 10 mg DAILY PO 04/22/24 10:00 04/23/24 09:34 10 MG Insulin Glargine 50 units DAILY SC 04/22/24 10:00 04/22/24 09:35 50 UNITS Lisinopril 40 mg DAILY PO 04/22/24 10:00 04/23/24 09:35 40 MG Duloxetine HCl 30 mg BID PO 04/21/24 22:00 04/23/24 09:34 30 MG Clindamycin Phosphate 50 ml @ 50 mls/hr Q8HR IV 04/22/24 14:59 04/23/24 05:55 50 MLS/HR Acetaminophen/ Hydrocodone Bitart 1 tab Q6HPRN PRN PO 04/22/24 16:30 Carisoprodol 350 mg [id number] PRN PO 04/22/24 16:30 Acetaminophen 650 mg Q6HP PRN PO 04/22/24 16:45 Laboratory Results Laboratory Tests 04/23/24 05:27 Chemistry Test 04/23/24 05:27 Calcium Level 8.9 mg/dL (8.7-10.4) Coagulation Test 04/23/24 05:27 Prothrombin Time 11.0 sec (9.3-11.8) Prothrombin Time INR 1.04 (0.9-1.15) Activated Partial Thromboplast Time 38.7 SEC (24.5-34.5) H Urinalysis Test 04/21/24 12:08 Urine Color Yellow (Yellow) Urine Clarity Turbid (Clear) H Urine pH 5.5 (5.0-9.0) Urine Specific [place] 1.016 (1.001-1.035) Urine Protein 1+ (Negative) H Urine Ketones Trace (Negative) Urine Blood Trace /uL (Negative) H Urine Nitrite Negative (Negative) Urine Bilirubin Negative (Negative) Urine Urobilinogen Normal mg/dL (Negative) Urine Leukocyte Esterase Negative /uL (Negative) Urine RBC 3 /hpf (0 - 3) Urine WBC 34 /hpf (0 - 3) Urine WBC Clumps Present /hpf (None Seen) Urine Squamous Epithelial Cells None seen /hpf (<5) Urine Bacteria None seen /hpf (None Seen) Urine Mucus Few (None Seen) Urine Glucose 1+ mg/dL (Normal) H Labs and/or images reviewed: Labs reviewed by me, Image(s) reviewed by me Assessment/Plan Assessment/Plan Impression: -sepsis -diabetic foot wound, rule out osteomyelitis -chronic kidney disease stage IIIB -peripheral arterial disease -peripheral neuropathy -diabetic retinopathy -obesity -primary hypertension Plan: Events: Patient was assessed in the recovery room. Status post I and D of right great toe. Patient continues to have leukocytosis, throbbing pain to foot. -podiatry consultation : Discussed case with Dr. Mcintosh -continue Zosyn, and clindamycin -continue gentle IV hydration -pain management: Soma for back spasms, [place] for foot pain -antihypertensives -repeat labs in a.m. -wound care consultation -reassess for discharge tomorrow Total time spent with patient discussing and formulating plan of care: 35 minutes. This medical document was created using an electronic medical record system with [employer] dictation system. Although this document has been carefully reviewed, there may still be some phonetic and typographical errors. These areas are purely typographical due to imperfections of the software programs, and do not reflect any compromise in the patient's medical care. Plan discussed with: Patient, Other (RN) My Orders Orders - DARCIE THORNTON NP Procedure Category Date Status Time Clindamycin 300mg Iv PHA 04/22/24 In Process (Cleocin Iv) 14:59 Blood Culture RUT 04/22/24 In Process 16:19 *Podiatry Consult CONS 04/22/24 Transmitted [place](Dv[facility]) 16:19 Hydrocodone-Acet PHA 04/22/24 In Process 5/325mg Tab ([place] 16:30 Carisoprodol Tablet PHA 04/22/24 In Process (Soma Tablet) 16:30 Basic Metabolic Panel LAB 04/24/24 Verified 04:00 Complete Blood Count LAB 04/24/24 Verified 04:00 Date of Service: Apr 23, 2024 Billing Provider: DARCIE THORNTON NP Common Visit Codes: [id number] INP/OBS CARE(HIGH) DARCIE THORNTON NP Apr 23, 2024 12:02
[2024-04-23] MEDS: DOCUSATE SOD 100 MG CAP PO PRN (12:12)
[2024-04-24] VITALS (8 sets, daily range): BP systolic 107–148; BP diastolic 53–75; PULSE 63–109; RESP 16–20; TEMP 98–99.8; O2SAT 91–96
[2024-04-24 06:11] LABS: Hemoglobin 11.1 g/dL (13.5-17.5)
[2024-04-24 06:14] LABS: Hematocrit 32.6 % (41.0-53.0); Mean Corpuscular Hemoglobin 27.9 pg (28.0-32.0); Mean Corpuscular Hgb Conc. 34.1 g/dL (32.0-36.0); Mean Corpuscular Volume 82.1 fL (80.0-100.0); Platelet Count (auto) 499 10^3/uL (140-450); Red Blood Cells 3.97 10^6/uL (4.5-5.90); Red Cell Distribution Width 13.8 % (11.8-14.3)
[2024-04-24 06:22] LABS: Basophils % (manual) 0 (0.0-2.0); Blast Cells 0; Eosinophils % (manual) 0 (0-7); Metamyelocytes % 0; Myelocytes % 0; Promyelocytes % 0; Reactive Lymphocytes 0
[2024-04-24 06:27] LABS: Calcium 8.9 mg/dL (8.7-10.4); Chloride 104 mmol/L (98-107); Potassium 3.8 mmol/L (3.5-5.1); Sodium 135 mmol/L (136-145)
[2024-04-24 06:28] LABS: Anion Gap 8 (5-15); Carbon Dioxide 23 mmol/L (20-31)
[2024-04-24 06:33] LABS: BUN/Creatinine Ratio 16.7 (10.0-20.0); Blood Urea Nitrogen 27 mg/dL (9-23); Glucose 104 mg/dL (74-106)
[2024-04-24 06:53] LABS: Band Neutrophils % (manual) 2; Lymphocytes % (manual) 7 (10.0-50.0); Monocytes % (manual) 9 (0-12)
[2024-04-24 06:54] LABS: Large Platelets FEW; Platelet Estimate Increa
--- NOTE | 2024-04-24 13:03 | DVHPN2 ---
Subjective The patient is seen and examined at bedside. The patient is status post foot surgery. The patient is in severe shortness a breath. Saturation oxygen dropped to 80%. Reviewed: Care Plan, H&P, Labs, Medications Changes from previous H/P or p: No Changes Eyes: No Pain, No Vision change, No Conjunctivae inflammation, No Eyelid inflammation, No Other, No Redness ENT: No Ear pain, No Ear discharge, No Nose pain, No Nose discharge, No Nose congestion, No Mouth pain, No Mouth swelling, No Throat pain, No Throat swelling, No Other Cardiovascular: No Chest Pain, No Palpitations, No Orthopnea, No Paroxysmal Noc. Dyspnea, No Edema, No Lt Headedness, No Other Respiratory: No Cough, No Dry, No Shortness of breath, No SOB with excertion, No Wheezing, No Hemoptysis, No Pleuritic Pain, No Sputum, No Other Gastrointestinal: No Nausea, No Vomiting, No Abdominal Pain, No Diarrhea, No Constipation, No Melena, No Hematochezia, No Other Genitourinary: No Dysuria, No Frequency, No Incontinence, No Hematuria, No Retention; Other (testcular pain) Musculoskeletal: No other, No neck pain, No shoulder pain, No arm pain; back pain; No hand pain, No leg pain, No foot pain Skin: No Rash; Lesions (right great toe diabetic foot ulcer); No Jaundice, No Bruising, No Other Objective Vitals Vital Signs Date Time Temp Pulse Resp B/P (MAP) Pulse Ox O2 Delivery O2 Flow Rate FiO2 04/24/24 11:55 71 19 148/67 04/24/24 09:00 99.2 93 99.2 04/23/24 20:00 Room Air* 0 21 Intake/Output Intake and Output 04/24/24 07:00 Intake Total 2725 ml Output Total 2075 ml Balance 650 ml Intake Oral 2475 ml IV Total 250 ml Output Urine Total 2075 ml General Appearance: Alert, Oriented X3, Cooperative, mild distress HEENT: Atraumatic, PERRLA Lungs: Clear to auscultation, Normal air movement Cardiovascular: Normal S1, Normal S2 Musculoskeletal: Normal sensory function, Normal motor function Skin: Wounds (See nurse notes and pictures) Psych/Mental Status: Mental status NL, Mood NL Medications Current Medications Medications Dose Ordered Sig/Torres Route Start Time Stop Time Status Last Admin Dose Admin Acetaminophen/ Hydrocodone Bitart 1 tab Q4HP PRN PO 04/21/24 17:00 04/23/24 22:09 1 TAB Ondansetron HCl 4 mg Q4HP PRN IV 04/21/24 17:00 Docusate Sodium 100 mg BIDPRN PRN PO 04/21/24 17:00 04/23/24 22:09 100 MG Morphine Sulfate 2 mg Q4HPRN PRN IV 04/21/24 17:00 04/24/24 11:55 2 MG Nitroglycerin 0.4 mg Q5MINP PRN SL 04/21/24 17:00 Piperacillin Sod/ Tazobactam Sod 100 ml @ 25 mls/hr Q12H IV 04/21/24 20:00 04/24/24 09:12 25 MLS/HR Diagnostic Test (Pha) 1 strip ACHS 04/21/24 22:00 04/24/24 11:55 1 STRIP Insulin Human Regular HS SC 04/21/24 22:00 04/23/24 22:54 2 UNITS Insulin Human Regular AC SC 04/22/24 07:00 04/24/24 12:29 3 UNITS Dextrose 50 ml UD PRN IV 04/21/24 17:15 Amlodipine Besylate 10 mg DAILY PO 04/22/24 10:00 04/24/24 09:11 10 MG Insulin Glargine 50 units DAILY SC 04/22/24 10:00 04/24/24 09:10 50 UNITS Lisinopril 40 mg DAILY PO 04/22/24 10:00 04/24/24 09:11 40 MG Duloxetine HCl 30 mg BID PO 04/21/24 22:00 04/24/24 09:10 30 MG Clindamycin Phosphate 50 ml @ 50 mls/hr Q8HR IV 04/22/24 14:59 04/24/24 06:07 50 MLS/HR Acetaminophen/ Hydrocodone Bitart 1 tab Q6HPRN PRN PO 04/22/24 16:30 Carisoprodol 350 mg [id number] PRN PO 04/22/24 16:30 Acetaminophen 650 mg Q6HP PRN PO 04/22/24 16:45 Laboratory Results Laboratory Tests 04/24/24 05:44 Chemistry Test 04/24/24 05:44 Calcium Level 8.9 mg/dL (8.7-10.4) Urinalysis Test 04/21/24 12:08 Urine Color Yellow (Yellow) Urine Clarity Turbid (Clear) H Urine pH 5.5 (5.0-9.0) Urine Specific [place] 1.016 (1.001-1.035) Urine Protein 1+ (Negative) H Urine Ketones Trace (Negative) Urine Blood Trace /uL (Negative) H Urine Nitrite Negative (Negative) Urine Bilirubin Negative (Negative) Urine Urobilinogen Normal mg/dL (Negative) Urine Leukocyte Esterase Negative /uL (Negative) Urine RBC 3 /hpf (0 - 3) Urine WBC 34 /hpf (0 - 3) Urine WBC Clumps Present /hpf (None Seen) Urine Squamous Epithelial Cells None seen /hpf (<5) Urine Bacteria None seen /hpf (None Seen) Urine Mucus Few (None Seen) Urine Glucose 1+ mg/dL (Normal) H Microbiology Microbiology Date/Time Source Procedure Growth Status 04/22/24 16:40 Blood Blood Culture - Preliminary Resulted Labs and/or images reviewed: Labs reviewed by me Assessment/Plan Assessment/Plan -acute hypoxic respiratory failure -sepsis -diabetic foot wound, rule out osteomyelitis -chronic kidney disease stage IIIB -peripheral arterial disease -peripheral neuropathy -diabetic retinopathy -obesity -primary hypertension Plan: Continuing current management. The patient is hypoxic after surgery, concern for pulmonary embolism. I will get the stat ABG. I will also order a stat chest x-ray. Continuing with IV antibiotics Zosyn and clindamycin. Continuing with gentle IV hydration. Continuing with Soma for back spasm and [place] for pain. Continuing hypertensive medication. Repeat lab in the morning. Wound care consulted. Addendum the patient has hypoxia based on ABG with PO2 only 50.2, and SO2 is 85. I am going to order a V/Q scan because of his kidney failure CTA can not be done now. In the meantime I will empirically treat the patient as a pulmonary embolism with heparin drip until the V/Q scan results come back. We will put in a pulmonology consulted. Plan discussed with: Patient My Orders Orders - CHAD YOUNG MD Procedure Category Date Status Time Chest Xray 1 View XY 04/24/24 Logged 12:47 Abg W/ Co-Ox RT 04/24/24 Logged 12:47 Date of Service: Apr 24, 2024 Billing Provider: CHAD YOUNG MD Common Visit Codes: [id number] INP/OBS CARE(HIGH) CHAD YOUNG MD Apr 24, 2024 13:03
[2024-04-24 13:14] LABS: Base Excess -1.3 mmol/L (-2.0-3.0)
--- NOTE | 2024-04-24 14:20 | DVH ---
EXAM: XY CHEST XRAY 1 VIEW TECHNIQUE: Single frontal chest radiograph CLINICAL HISTORY: HIGH TEMPERATURE AND DESATURATION OF OXYGEN COMPARISON: XY CHEST XRAY 1 VIEW on DOS: 04/23/24 Findings/Impression: Frontal chest radiograph demonstrates no acute osseous or superficial soft tissue abnormalities. The trachea is midline. The cardiac silhouette and mediastinum are within normal limits. Moderate low lung volumes with bronchovascular crowding. Coarsened interstitial markings with mild worsening right infrahilar opacity. No pneumothorax or pleural effusions.
[2024-04-24] MEDS: HEPARIN SODIUM (PORCINE) 5000 UNITS/ML 1ML VIAL IV ONE (14:38)
[2024-04-24] MEDS: HEPARIN DRIP/D5W 100UNITS/ML 250 ML IV SCH (15:00)
[2024-04-24 15:07] LABS: Monocytes # (auto) 1.5 10 ^3/uL (0-1.3); Neutrophils # (auto) 9.4 10 ^3/uL (1.6-8.6)
[2024-04-24 15:09] LABS: Basophils # (auto) 0 10 ^3/uL (0-0.2); Basophils % (auto) 0.3 % (0.0-2.0); Eosinophils # (auto) 0.3 10 ^3/uL (0-0.8); Eosinophils % (auto) 2.1 % (0.0-7.0); Hematocrit 31.6 % (41.0-53.0); Hemoglobin 10.9 g/dL (13.5-17.5); Lymphocytes # (auto) 1.2 10 ^3/uL (0.4-5.4); Lymphocytes % (auto) 9.9 % (10.0-50.0); Mean Corpuscular Hgb Conc. 34.3 g/dL (32.0-36.0); Mean Corpuscular Volume 81.7 fL (80.0-100.0); Monocytes % (auto) 12.2 % (0.0-12.0); Neutrophils % (auto) 75.5 % (37.0-80.0); Platelet Count (auto) 517 10^3/uL (140-450); Red Blood Cells 3.87 10^6/uL (4.5-5.90); Red Cell Distribution Width 13.7 % (11.8-14.3); White Blood Cell 12.4 10^3/uL (4.4-10.8)
[2024-04-24 15:15] LABS: INR 1.05 (0.9-1.15); Partial Thromboplastin Time 37.9 SEC (24.5-34.5); Prothrombin Time 11.1 sec (9.3-11.8)
[2024-04-24] MEDS: CARISOPRODOL 350 MG TAB PO PRN (18:00)
[2024-04-24 20:00] LABS: Platelet Estimate Increased
--- NOTE | 2024-04-24 21:16 | DVHPN2 ---
Progress Note - Dictate Date Seen: Apr 24, 2024 Medical Necessity Reason Pt with a Central, PICC or Fol: No Subjective Patient seen and examined at bedside. On supplemental oxygen Overnight events reviewed. History of Present Illness: A 68-year-old man with past medical history of hypertension, hyperlipidemia, diabetes, and depression, who came into the hospital on 04/21/24 for a diabetic foot ulcer, right testicular pain, and right back pain. Patient states that [place] from [place] of [place], he is here working. He has had this foot ulcer for several months and was following with podiatry back home, but has not been in to see anyone for a couple months. He states he injured his testicle a couple days ago getting out of his truck and at that time. also pulled a muscle in his back. Testicular ultrasound was completed by ER and came back normal. Patient was admitted for further care. Pulmonary consultation requested for evaluation and management of acute hypoxic respiratory failure. Review of Systems: 14-point review of systems negative unless otherwise noted above. Past Medical History: Hypertension, hyperlipidemia, diabetes, and depression, Past Surgical History: None Medications: Reviewed. Allergies: No known drug allergies. Family History: DM in mother and father Social History: Nonsmoker. No alcohol or illicit drug use vital signs Vital Sign Date Time Temp Pulse Resp B/P (MAP) Pulse Ox O2 Delivery O2 Flow Rate FiO2 04/24/24 17:00 99.8 109 20 107/75 (86) 95 99.8 04/24/24 08:06 Room Air* 0 21 Total Intake and Output 04/23/24 04/23/24 04/24/24 15:00 23:00 07:00 Intake Total 100 ml 775 ml 1850 ml Output Total 575 ml 1500 ml Balance 100 ml 200 ml 350 ml medications Current Medications Medications Dose Ordered Sig/Torres Route Start Time Stop Time Status Last Admin Dose Admin Acetaminophen/ Hydrocodone Bitart 1 tab Q4HP PRN PO 04/21/24 17:00 04/23/24 22:09 1 TAB Ondansetron HCl 4 mg Q4HP PRN IV 04/21/24 17:00 Docusate Sodium 100 mg BIDPRN PRN PO 04/21/24 17:00 04/23/24 22:09 100 MG Morphine Sulfate 2 mg Q4HPRN PRN IV 04/21/24 17:00 04/24/24 11:55 2 MG Nitroglycerin 0.4 mg Q5MINP PRN SL 04/21/24 17:00 Piperacillin Sod/ Tazobactam Sod 100 ml @ 25 mls/hr Q12H IV 04/21/24 20:00 04/24/24 20:00 25 MLS/HR Diagnostic Test (Pha) 1 strip ACHS 04/21/24 22:00 04/24/24 17:22 1 STRIP Insulin Human Regular HS SC 04/21/24 22:00 04/23/24 22:54 2 UNITS Insulin Human Regular AC SC 04/22/24 07:00 04/24/24 12:29 3 UNITS Dextrose 50 ml UD PRN IV 04/21/24 17:15 Amlodipine Besylate 10 mg DAILY PO 04/22/24 10:00 04/24/24 09:11 10 MG Insulin Glargine 50 units DAILY SC 04/22/24 10:00 04/24/24 09:10 50 UNITS Lisinopril 40 mg DAILY PO 04/22/24 10:00 04/24/24 09:11 40 MG Duloxetine HCl 30 mg BID PO 04/21/24 22:00 04/24/24 09:10 30 MG Clindamycin Phosphate 50 ml @ 50 mls/hr Q8HR IV 04/22/24 14:59 04/24/24 14:13 50 MLS/HR Acetaminophen/ Hydrocodone Bitart 1 tab Q6HPRN PRN PO 04/22/24 16:30 Carisoprodol 350 mg [id number] PRN PO 04/22/24 16:30 04/24/24 18:00 350 MG Acetaminophen 650 mg Q6HP PRN PO 04/22/24 16:45 Heparin Sodium/ Dextrose 250 ml @ 18 mls/hr [id number] IV 04/24/24 14:00 04/24/24 15:00 18 MLS/HR objective Gen.: Patient lying in bed in no apparent distress. On supplemental oxygen. Head: Normocephalic, atraumatic. Eyes: EOMI/PERRLA. Ears: Normal hearing. Normal anatomy. Neck/trachea: Trachea midline, supple. Nose: Normal external anatomy. Mouth: Moist mucous membranes. Chest: Decreased air entry bilaterally. No wheezing or rhonchi. Cardiovascular: Positive S1, positive S2. Regular rate and rhythm. Abdomen: Positive bowel sounds in all 4 quadrants. Soft, non-tender, non- distended. : Deferred. Rectal: Deferred. Skin: Warm, dry. Intact. Extremities: 2+ radial pulses bilaterally. No lower extremity edema. Neuro: Awake, alert, oriented x3. No gross motor or sensory deficits. Cranial nerves II through XII intact. Gait not assessed. laboratory and microbiology Laboratory Tests 04/24/24 14:43 04/24/24 05:44 Test 04/24/24 05:44 Range/Units Serum Glucose 104 74-106 mg/dL Assessment/Plan Impression: Acute hypoxic respiratory failure Sepsis Obesity BMI 32.4 Hypertension Atelectasis Events: Remains on supplemental o2 2 LPM NC Taper O2 as tolerated Continue abx Pain control w/ morphine drip Avoid oversedation Labs and imaging reviewed. Rest of plan as noted below. Plan: ABG reviewed. Hypoxemia due to PaO2 50 mmHg. Supplemental o2 2 LPM NC Keep o2 saturation above 92% IS for atelectasis Pain control Avoid oversedation Abx F/u cultures Heparin drip Diet and lifestyle modifications for weight reduction. DVT prophylaxis. Prognosis: Guarded given patient's multiple co-morbidities. Rest of plan per hospitalist and other consultants. Thank you Dr. Edi Hawley for allowing me to participate in this patient's care. Further recommendations will depend on the patient's clinical course. Please do not hesitate to contact me if you have any questions or concerns. This medical document was created using an electronic medical record system with [employer] dictation system. Although these documentations are being carefully reviewed, there may still be some phonetic and typographical changes. The errors are purely typographical, due to imperfection on the software program, and do not reflect any compromise in the patient's medical care. Plan discussed with: Patient, Other (RN, MD) ERNIE JAVED MD Apr 24, 2024 21:16
[2024-04-24 21:48] LABS: INR 1.08 (0.9-1.15); Partial Thromboplastin Time 39.5 SEC (24.5-34.5); Prothrombin Time 11.4 sec (9.3-11.8)
[2024-04-25] VITALS (9 sets, daily range): BP systolic 115–155; BP diastolic 69–73; PULSE 67–77; RESP 17–20; TEMP 98–99.4; O2SAT 91–96
[2024-04-25 03:31] LABS: INR 1.07 (0.9-1.15); Prothrombin Time 11.3 sec (9.3-11.8)
[2024-04-25] MEDS: HEPARIN DRIP/D5W 100UNITS/ML 250 ML IV SCH (04:09)
[2024-04-25 10:27] LABS: Eosinophils # (auto) 0.2 10 ^3/uL (0-0.8); Hemoglobin 10.8 g/dL (13.5-17.5); Lymphocytes # (auto) 1.2 10 ^3/uL (0.4-5.4)
[2024-04-25 10:29] LABS: Basophils # (auto) 0.1 10 ^3/uL (0-0.2); Basophils % (auto) 0.4 % (0.0-2.0); Eosinophils % (auto) 1.8 % (0.0-7.0); Hematocrit 31.8 % (41.0-53.0); Lymphocytes % (auto) 9.3 % (10.0-50.0); Mean Corpuscular Hemoglobin 28.1 pg (28.0-32.0); Mean Corpuscular Hgb Conc. 33.8 g/dL (32.0-36.0); Monocytes # (auto) 1.2 10 ^3/uL (0-1.3); Monocytes % (auto) 9.3 % (0.0-12.0); Neutrophils # (auto) 9.9 10 ^3/uL (1.6-8.6); Neutrophils % (auto) 79.2 % (37.0-80.0); Platelet Count (auto) 525 10^3/uL (140-450); Red Blood Cells 3.83 10^6/uL (4.5-5.90); Red Cell Distribution Width 14.1 % (11.8-14.3); White Blood Cell 12.4 10^3/uL (4.4-10.8)
[2024-04-25 10:55] LABS: INR 1.09 (0.9-1.15); Partial Thromboplastin Time 57.8 SEC (24.5-34.5); Prothrombin Time 11.5 sec (9.3-11.8)
--- NOTE | 2024-04-25 13:06 | DVHPN2 ---
Subjective The patient is seen and examined at bedside. Still complain of throbbing foot pain. However pain medication does help him. Denied any chest pain or shortness for breath. Patient is still hypoxic and required 2 L of oxygen. Reviewed: Care Plan, H&P, Labs, Medications Changes from previous H/P or p: No Changes Eyes: No Pain, No Vision change, No Conjunctivae inflammation, No Eyelid inflammation, No Other, No Redness ENT: No Ear pain, No Ear discharge, No Nose pain, No Nose discharge, No Nose congestion, No Mouth pain, No Mouth swelling, No Throat pain, No Throat swelling, No Other Cardiovascular: No Chest Pain, No Palpitations, No Orthopnea, No Paroxysmal Noc. Dyspnea, No Edema, No Lt Headedness, No Other Respiratory: No Cough, No Dry, No Shortness of breath, No SOB with excertion, No Wheezing, No Hemoptysis, No Pleuritic Pain, No Sputum, No Other Gastrointestinal: No Nausea, No Vomiting, No Abdominal Pain, No Diarrhea, No Constipation, No Melena, No Hematochezia, No Other Genitourinary: No Dysuria, No Frequency, No Incontinence, No Hematuria, No Retention; Other (testcular pain) Musculoskeletal: No other, No neck pain, No shoulder pain, No arm pain; back pain; No hand pain, No leg pain, No foot pain Skin: No Rash; Lesions (right great toe diabetic foot ulcer); No Jaundice, No Bruising, No Other Objective Vitals Vital Signs Date Time Temp Pulse Resp B/P (MAP) Pulse Ox O2 Delivery O2 Flow Rate FiO2 04/25/24 09:53 155/72 04/25/24 09:00 98.8 67 18 93 98.8 04/25/24 08:06 Nasal Cannula* 2 28 Intake/Output Intake and Output 04/25/24 07:00 Intake Total 925 ml Output Total 2075 ml Balance -1150 ml Intake Oral 775 ml IV Total 150 ml Output Urine Total 2075 ml General Appearance: Alert, Oriented X3, Cooperative, mild distress HEENT: Atraumatic, PERRLA Lungs: Clear to auscultation, Normal air movement Cardiovascular: Normal S1, Normal S2 Musculoskeletal: Normal sensory function, Normal motor function Skin: Wounds (See nurse notes and pictures) Psych/Mental Status: Mental status NL, Mood NL Medications Current Medications Medications Dose Ordered Sig/Torres Route Start Time Stop Time Status Last Admin Dose Admin Acetaminophen/ Hydrocodone Bitart 1 tab Q4HP PRN PO 04/21/24 17:00 04/23/24 22:09 1 TAB Ondansetron HCl 4 mg Q4HP PRN IV 04/21/24 17:00 Docusate Sodium 100 mg BIDPRN PRN PO 04/21/24 17:00 04/25/24 09:52 100 MG Morphine Sulfate 2 mg Q4HPRN PRN IV 04/21/24 17:00 04/24/24 21:48 2 MG Nitroglycerin 0.4 mg Q5MINP PRN SL 04/21/24 17:00 Piperacillin Sod/ Tazobactam Sod 100 ml @ 25 mls/hr Q12H IV 04/21/24 20:00 04/25/24 08:09 25 MLS/HR Diagnostic Test (Pha) 1 strip ACHS 04/21/24 22:00 04/25/24 11:07 1 STRIP Insulin Human Regular HS SC 04/21/24 22:00 04/24/24 21:57 3 UNITS Insulin Human Regular AC SC 04/22/24 07:00 04/25/24 11:12 2 UNITS Dextrose 50 ml UD PRN IV 04/21/24 17:15 Amlodipine Besylate 10 mg DAILY PO 04/22/24 10:00 04/25/24 09:53 10 MG Insulin Glargine 50 units DAILY SC 04/22/24 10:00 04/25/24 09:50 50 UNITS Lisinopril 40 mg DAILY PO 04/22/24 10:00 04/25/24 09:53 40 MG Duloxetine HCl 30 mg BID PO 04/21/24 22:00 04/25/24 09:52 30 MG Clindamycin Phosphate 50 ml @ 50 mls/hr Q8HR IV 04/22/24 14:59 04/25/24 06:07 50 MLS/HR Acetaminophen/ Hydrocodone Bitart 1 tab Q6HPRN PRN PO 04/22/24 16:30 Carisoprodol 350 mg [id number] PRN PO 04/22/24 16:30 04/24/24 18:00 350 MG Acetaminophen 650 mg Q6HP PRN PO 04/22/24 16:45 Heparin Sodium/ Dextrose 250 ml @ 20 mls/hr [id number] IV 04/25/24 04:15 04/25/24 09:48 20 MLS/HR Laboratory Results Laboratory Tests 04/24/24 05:44 04/25/24 10:14 Coagulation Test 04/24/24 14:43 04/24/24 21:01 04/25/24 02:31 04/25/24 10:14 Prothrombin Time 11.1 sec (9.3-11.8) 11.4 sec (9.3-11.8) 11.3 sec (9.3-11.8) 11.5 sec (9.3-11.8) Prothrombin Time INR 1.05 (0.9-1.15) 1.08 (0.9-1.15) 1.07 (0.9-1.15) 1.09 (0.9-1.15) Activated Partial Thromboplast Time 37.9 SEC (24.5-34.5) H 39.5 SEC (24.5-34.5) H 49.0 SEC (24.5-34.5) H 57.8 SEC (24.5-34.5) H Urinalysis Test 04/21/24 12:08 Urine Color Yellow (Yellow) Urine Clarity Turbid (Clear) H Urine pH 5.5 (5.0-9.0) Urine Specific [place] 1.016 (1.001-1.035) Urine Protein 1+ (Negative) H Urine Ketones Trace (Negative) Urine Blood Trace /uL (Negative) H Urine Nitrite Negative (Negative) Urine Bilirubin Negative (Negative) Urine Urobilinogen Normal mg/dL (Negative) Urine Leukocyte Esterase Negative /uL (Negative) Urine RBC 3 /hpf (0 - 3) Urine WBC 34 /hpf (0 - 3) Urine WBC Clumps Present /hpf (None Seen) Urine Squamous Epithelial Cells None seen /hpf (<5) Urine Bacteria None seen /hpf (None Seen) Urine Mucus Few (None Seen) Urine Glucose 1+ mg/dL (Normal) H Microbiology Microbiology Date/Time Source Procedure Growth Status 04/23/24 10:52 Foot Right Gram Stain - Final Resulted 04/23/24 10:52 Foot Right Anaerobic Culture - Preliminary Resulted 04/23/24 10:52 Aerobic Culture - Final Staphylococcus aureus Resulted 04/22/24 16:40 Blood Blood Culture - Final Staphylococcus aureus Complete Labs and/or images reviewed: Labs reviewed by me Assessment/Plan Assessment/Plan -acute hypoxic respiratory failure -sepsis -diabetic foot wound, rule out osteomyelitis -chronic kidney disease stage IIIB -peripheral arterial disease -peripheral neuropathy -diabetic retinopathy -obesity -primary hypertension Plan: Continuing current management. The patient is hypoxic after surgery, concern for pulmonary embolism. I will get the stat ABG. I will also order a stat chest x-ray. Continuing with IV antibiotics Zosyn and clindamycin. Continuing with gentle IV hydration. Continuing with Soma for back spasm and Comfort for pain. Continuing hypertensive medication. Repeat lab in the morning. Wound care consulted. Seasoning Mixer consult input appreciated. Still waiting for V/ Q scan. Continuing with heparin drip for now. Plan discussed with: Patient My Orders Orders - CHAD YOUNG MD Procedure Category Date Status Time Acquisition Advisor ORDERS 04/24/24 Transmitted 13:27 Nm Vq Scan NM 04/24/24 Logged 13:40 *Consult CONS 04/24/24 Transmitted / 13:40 Platelet Monitoring [facility] 04/24/24 In Process 13:52 Vte Protocol Initiated [facility] 04/24/24 In Process 13:52 Discontinue All Im [facility] 04/24/24 In Process Injections 13:52 Heparin Per Pharmacy [facility] 04/24/24 In Process Protocol 14:21 Heparin Drip/D5w PHA 04/25/24 In Process 100units/Ml 04:15 Complete Blood Count LAB 04/26/24 Verified 04:00 Heparin Per Pharmacy [facility] 04/25/24 In Process Protocol 08:32 PTPTT LAB 04/25/24 Logged 16:00 Heparin Per Pharmacy [facility] 04/25/24 In Process Protocol 11:21 Date of Service: Apr 25, 2024 Billing Provider: CHAD YOUNG MD Common Visit Codes: [id number] INP/OBS CARE(HIGH) CHAD YOUNG MD Apr 25, 2024 13:06
[2024-04-25] MEDS: POLYETHYLENE GLYCOL 17 GM PWDR PO PRN (14:50)
[2024-04-25 16:15] LABS: INR 1.07 (0.9-1.15); Partial Thromboplastin Time 60.1 SEC (24.5-34.5); Prothrombin Time 11.3 sec (9.3-11.8)
[2024-04-25 22:52] LABS: INR 1.08 (0.9-1.15); Partial Thromboplastin Time 59.3 SEC (24.5-34.5); Prothrombin Time 11.4 sec (9.3-11.8)
[2024-04-26] VITALS (7 sets, daily range): BP systolic 137–149; BP diastolic 70–74; PULSE 64–72; RESP 16–21; TEMP 97.8–98.6; O2SAT 95–97
--- NOTE | 2024-04-26 00:46 | DVHPN2 ---
Progress Note - Dictate Date Seen: Apr 25, 2024 Medical Necessity Reason Pt with a Central, PICC or Fol: No Subjective Patient seen and examined at bedside. On supplemental oxygen Overnight events reviewed. History of Present Illness: A 68-year-old man with past medical history of hypertension, hyperlipidemia, diabetes, and depression, who came into the hospital on 04/21/24 for a diabetic foot ulcer, right testicular pain, and right back pain. Patient states that [place] is from [place] of [place], he is here working. He has had this foot ulcer for several months and was following with podiatry back home, but has not been in to see anyone for a couple months. He states he injured his testicle a couple days ago getting out of his truck and at that time. also pulled a muscle in his back. Testicular ultrasound was completed by ER and came back normal. Patient was admitted for further care. Pulmonary consultation requested for evaluation and management of acute hypoxic respiratory failure. Review of Systems: 14-point review of systems negative unless otherwise noted above. Past Medical History: Hypertension, hyperlipidemia, diabetes, and depression, Past Surgical History: None Medications: Reviewed. Allergies: No known drug allergies. Family History: DM in mother and father Social History: Nonsmoker. No alcohol or illicit drug use vital signs Vital Sign Date Time Temp Pulse Resp B/P (MAP) Pulse Ox O2 Delivery O2 Flow Rate FiO2 04/25/24 21:52 74 18 151/70 04/25/24 21:00 98.4 96 98.4 04/25/24 20:00 Nasal Cannula* 2 28 Total Intake and Output 04/25/24 04/25/24 04/26/24 15:00 23:00 07:00 Intake Total 350 ml 290 ml Output Total 500 ml Balance 350 ml -210 ml medications Current Medications Medications Dose Ordered Sig/Torres Route Start Time Stop Time Status Last Admin Dose Admin Acetaminophen/ Hydrocodone Bitart 1 tab Q4HP PRN PO 04/21/24 17:00 04/23/24 22:09 1 TAB Ondansetron HCl 4 mg Q4HP PRN IV 04/21/24 17:00 Docusate Sodium 100 mg BIDPRN PRN PO 04/21/24 17:00 04/25/24 21:50 100 MG Morphine Sulfate 2 mg Q4HPRN PRN IV 04/21/24 17:00 04/25/24 21:52 2 MG Nitroglycerin 0.4 mg Q5MINP PRN SL 04/21/24 17:00 Piperacillin Sod/ Tazobactam Sod 100 ml @ 25 mls/hr Q12H IV 04/21/24 20:00 04/25/24 20:20 25 MLS/HR Diagnostic Test (Pha) 1 strip ACHS 04/21/24 22:00 04/25/24 21:52 1 STRIP Insulin Human Regular HS SC 04/21/24 22:00 04/24/24 21:57 3 UNITS Insulin Human Regular AC SC 04/22/24 07:00 04/25/24 11:12 2 UNITS Dextrose 50 ml UD PRN IV 04/21/24 17:15 Amlodipine Besylate 10 mg DAILY PO 04/22/24 10:00 04/25/24 09:53 10 MG Insulin Glargine 50 units DAILY SC 04/22/24 10:00 04/25/24 09:50 50 UNITS Lisinopril 40 mg DAILY PO 04/22/24 10:00 04/25/24 09:53 40 MG Duloxetine HCl 30 mg BID PO 04/21/24 22:00 04/25/24 21:50 30 MG Clindamycin Phosphate 50 ml @ 50 mls/hr Q8HR IV 04/22/24 14:59 04/25/24 21:50 50 MLS/HR Acetaminophen/ Hydrocodone Bitart 1 tab Q6HPRN PRN PO 04/22/24 16:30 Carisoprodol 350 mg [id number] PRN PO 04/22/24 16:30 04/25/24 17:57 350 MG Acetaminophen 650 mg Q6HP PRN PO 04/22/24 16:45 Heparin Sodium/ Dextrose 250 ml @ 20 mls/hr [id number] IV 04/25/24 04:15 04/26/24 00:19 20 MLS/HR Polyethylene Glycol 17 gm DAILYPRN PRN PO 04/25/24 13:30 04/25/24 14:50 17 GM objective Gen.: Patient lying in bed in no apparent distress. On supplemental oxygen. Head: Normocephalic, atraumatic. Eyes: EOMI/PERRLA. Ears: Normal hearing. Normal anatomy. Neck/trachea: Trachea midline, supple. Nose: Normal external anatomy. Mouth: Moist mucous membranes. Chest: Decreased air entry bilaterally. No wheezing or rhonchi. Cardiovascular: Positive S1, positive S2. Regular rate and rhythm. Abdomen: Positive bowel sounds in all 4 quadrants. Soft, non-tender, non- distended. : Deferred. Rectal: Deferred. Skin: Warm, dry. Intact. Extremities: 2+ radial pulses bilaterally. No lower extremity edema. Neuro: Awake, alert, oriented x3. No gross motor or sensory deficits. Cranial nerves II through XII intact. Gait not assessed. laboratory and microbiology Laboratory Tests 04/25/24 10:14 04/24/24 05:44 Test 04/24/24 05:44 Range/Units Serum Glucose 104 74-106 mg/dL Assessment/Plan Impression: Acute hypoxic respiratory failure Sepsis Obesity BMI 32.4 Hypertension Atelectasis Events: Remains on supplemental o2 2 LPM NC Taper O2 as tolerated Continue abx Heparin drip Accu-Cheks for glycemic monitoring Pain control w/ morphine drip Avoid oversedation Labs and imaging reviewed. Rest of plan as noted below. Plan: ABG reviewed. Hypoxemia due to PaO2 50 mmHg. Supplemental o2 2 LPM NC Keep o2 saturation above 92% IS for atelectasis Pain control Avoid oversedation Abx F/u cultures Heparin drip Diet and lifestyle modifications for weight reduction. DVT prophylaxis. Prognosis: Guarded given patient's multiple co-morbidities. Rest of plan per hospitalist and other consultants. Thank you Dr. Edi Hawley for allowing me to participate in this patient's care. Further recommendations will depend on the patient's clinical course. Please do not hesitate to contact me if you have any questions or concerns. This medical document was created using an electronic medical record system with [employer] dictation system. Although these documentations are being carefully reviewed, there may still be some phonetic and typographical changes. The errors are purely typographical, due to imperfection on the software program, and do not reflect any compromise in the patient's medical care. Plan discussed with: Patient, Other (RN) ERNIE JAVED MD Apr 26, 2024 00:46
[2024-04-26 06:00] LABS: Hematocrit 32.7 % (41.0-53.0); Hemoglobin 11.2 g/dL (13.5-17.5); Mean Corpuscular Hemoglobin 28.4 pg (28.0-32.0); Mean Corpuscular Hgb Conc. 34.2 g/dL (32.0-36.0); Platelet Count (auto) 553 10^3/uL (140-450); Red Blood Cells 3.94 10^6/uL (4.5-5.90); Red Cell Distribution Width 13.9 % (11.8-14.3); White Blood Cell 12.7 10^3/uL (4.4-10.8)
[2024-04-26 06:16] LABS: INR 1.1 (0.9-1.15); Partial Thromboplastin Time 54.7 SEC (24.5-34.5); Prothrombin Time 11.6 sec (9.3-11.8)
[2024-04-26 06:24] LABS: Basophils % (manual) 0 (0.0-2.0); Blast Cells 0; Metamyelocytes % 0; Myelocytes % 0; Promyelocytes % 0; Reactive Lymphocytes 0
[2024-04-26] MEDS ORDERED: VANCOMYCIN PER PHARMACY 0 MG IV SCH (08:15)
[2024-04-26] MEDS: VANCOMYCIN 1GM/200ML PREMIX 200 ML IV SCH (08:39)
[2024-04-26 09:02] LABS: Monocytes % (manual) 11 (0-12)
[2024-04-26 09:03] LABS: Band Neutrophils % (manual) 8; Eosinophils % (manual) 1 (0-7); Lymphocytes % (manual) 14 (10.0-50.0)
[2024-04-26 09:04] LABS: Platelet Estimate Increased
--- NOTE | 2024-04-26 10:27 | DVHPN2 ---
Subjective Continues to have right lower extremity pain. Back spasms Reviewed: Care Plan, H&P, Labs, Medications Changes from previous H/P or p: No Changes Eyes: No Pain, No Vision change, No Conjunctivae inflammation, No Eyelid inflammation, No Other, No Redness ENT: No Ear pain, No Ear discharge, No Nose pain, No Nose discharge, No Nose congestion, No Mouth pain, No Mouth swelling, No Throat pain, No Throat swelling, No Other Cardiovascular: No Chest Pain, No Palpitations, No Orthopnea, No Paroxysmal Noc. Dyspnea, No Edema, No Lt Headedness, No Other Respiratory: No Cough, No Dry, No Shortness of breath, No SOB with excertion, No Wheezing, No Hemoptysis, No Pleuritic Pain, No Sputum, No Other Gastrointestinal: No Nausea, No Vomiting, No Abdominal Pain, No Diarrhea, No Constipation, No Melena, No Hematochezia, No Other Genitourinary: No Dysuria, No Frequency, No Incontinence, No Hematuria, No Retention; Other (testcular pain) Musculoskeletal: No other, No neck pain, No shoulder pain, No arm pain; back pain; No hand pain, No leg pain, No foot pain Skin: No Rash; Lesions (right great toe diabetic foot ulcer); No Jaundice, No Bruising, No Other Objective Vitals Vital Signs Date Time Temp Pulse Resp B/P (MAP) Pulse Ox O2 Delivery O2 Flow Rate FiO2 04/26/24 09:00 98.6 72 21 148/70 (96) 96 98.6 04/25/24 20:00 Nasal Cannula* 2 28 Intake/Output Intake and Output 04/26/24 06:59 Intake Total 925 ml Output Total 1500 ml Balance -575 ml Intake Oral 240 ml IV Total 685 ml Output Urine Total 1500 ml General Appearance: Alert, Oriented X3, Cooperative, mild distress HEENT: Atraumatic, PERRLA Lungs: Clear to auscultation, Normal air movement Cardiovascular: Normal S1, Normal S2 Musculoskeletal: Normal sensory function, Normal motor function Extremities: Other (Dressing dry and intact foot) Skin: Wounds (See nurse notes and pictures) Psych/Mental Status: Mental status NL, Mood NL Medications Current Medications Medications Dose Ordered Sig/Torres Route Start Time Stop Time Status Last Admin Dose Admin Acetaminophen/ Hydrocodone Bitart 1 tab Q4HP PRN PO 04/21/24 17:00 04/26/24 01:45 1 TAB Ondansetron HCl 4 mg Q4HP PRN IV 04/21/24 17:00 Docusate Sodium 100 mg BIDPRN PRN PO 04/21/24 17:00 04/25/24 21:50 100 MG Morphine Sulfate 2 mg Q4HPRN PRN IV 04/21/24 17:00 04/25/24 21:52 2 MG Nitroglycerin 0.4 mg Q5MINP PRN SL 04/21/24 17:00 Diagnostic Test (Pha) 1 strip ACHS 04/21/24 22:00 04/26/24 06:48 1 STRIP Insulin Human Regular HS SC 04/21/24 22:00 04/24/24 21:57 3 UNITS Insulin Human Regular AC SC 04/22/24 07:00 04/25/24 11:12 2 UNITS Dextrose 50 ml UD PRN IV 04/21/24 17:15 Amlodipine Besylate 10 mg DAILY PO 04/22/24 10:00 04/25/24 09:53 10 MG Insulin Glargine 50 units DAILY SC 04/22/24 10:00 04/25/24 09:50 50 UNITS Lisinopril 40 mg DAILY PO 04/22/24 10:00 04/25/24 09:53 40 MG Duloxetine HCl 30 mg BID PO 04/21/24 22:00 04/25/24 21:50 30 MG Acetaminophen/ Hydrocodone Bitart 1 tab Q6HPRN PRN PO 04/22/24 16:30 Carisoprodol 350 mg [id number] PRN PO 04/22/24 16:30 04/25/24 17:57 350 MG Acetaminophen 650 mg Q6HP PRN PO 04/22/24 16:45 Heparin Sodium/ Dextrose 250 ml @ 20 mls/hr [id number] IV 04/25/24 04:15 04/26/24 00:19 20 MLS/HR Polyethylene Glycol 17 gm DAILYPRN PRN PO 04/25/24 13:30 04/25/24 14:50 17 GM Vancomycin HCl 0 ml @ 0 mls/hr UD IV 04/26/24 08:15 Vancomycin HCl 200 ml @ 200 mls/hr Q1H IV 04/26/24 08:30 04/26/24 10:29 04/26/24 08:39 200 MLS/HR Laboratory Results Laboratory Tests 04/24/24 05:44 04/26/24 05:40 Coagulation Test 04/25/24 15:50 04/25/24 22:08 04/26/24 05:40 Prothrombin Time 11.3 sec (9.3-11.8) 11.4 sec (9.3-11.8) 11.6 sec (9.3-11.8) Prothrombin Time INR 1.07 (0.9-1.15) 1.08 (0.9-1.15) 1.10 (0.9-1.15) Activated Partial Thromboplast Time 60.1 SEC (24.5-34.5) H 59.3 SEC (24.5-34.5) H 54.7 SEC (24.5-34.5) H Urinalysis Test 04/21/24 12:08 Urine Color Yellow (Yellow) Urine Clarity Turbid (Clear) H Urine pH 5.5 (5.0-9.0) Urine Specific [place] 1.016 (1.001-1.035) Urine Protein 1+ (Negative) H Urine Ketones Trace (Negative) Urine Blood Trace /uL (Negative) H Urine Nitrite Negative (Negative) Urine Bilirubin Negative (Negative) Urine Urobilinogen Normal mg/dL (Negative) Urine Leukocyte Esterase Negative /uL (Negative) Urine RBC 3 /hpf (0 - 3) Urine WBC 34 /hpf (0 - 3) Urine WBC Clumps Present /hpf (None Seen) Urine Squamous Epithelial Cells None seen /hpf (<5) Urine Bacteria None seen /hpf (None Seen) Urine Mucus Few (None Seen) Urine Glucose 1+ mg/dL (Normal) H Microbiology Microbiology Date/Time Source Procedure Growth Status 04/23/24 10:52 Foot Right Gram Stain - Final Resulted 04/23/24 10:52 Foot Right Anaerobic Culture - Preliminary Resulted 04/23/24 10:52 Aerobic Culture - Final Staphylococcus aureus Resulted 04/22/24 16:40 Blood Blood Culture - Final Staphylococcus aureus Complete Labs and/or images reviewed: Labs reviewed by me, Image(s) reviewed by me Assessment/Plan Assessment/Plan Impression: -sepsis secondary to Staphylococcus aureus in the blood -diabetic foot wound, rule out osteomyelitis -chronic kidney disease stage IIIB -peripheral arterial disease -peripheral neuropathy -diabetic retinopathy -obesity -primary hypertension -probable obstructive sleep apnea Plan: Events: Patient has wound culture and blood culture positive for Staphylococcus aureus. -change antibiotic therapy to vancomycin -patient pending V/Q scan per covering hospitalist -podiatry consultation : Discussed case with Dr. Mcintosh -pain management: [place] for back spasms, [place] for foot pain -antihypertensives -repeat labs in a.m. -wound care consultation -recheck blood culture -incentive spirometer Total time spent with patient discussing and formulating plan of care: 35 minutes. This medical document was created using an electronic medical record system with [employer] dictation system. Although this document has been carefully reviewed, there may still be some phonetic and typographical errors. These areas are purely typographical due to imperfections of the software programs, and do not reflect any compromise in the patient's medical care. Plan discussed with: Patient, Other (RN) My Orders Orders - DARCIE THORNTON NP Procedure Category Date Status Time Vancomycin Per PHA 04/26/24 In Process Pharmacy 08:15 Blood Culture RUT 04/26/24 In Process 08:13 Vancomycin 1gm/200ml PHA 04/26/24 In Process [facility] 08:30 Complete Blood Count LAB 04/27/24 Verified 04:00 Creatinine LAB 04/27/24 Verified 04:00 Vancomycin,Random LAB 04/27/24 Verified 04:00 Enoxaparin Sodium PHA 04/27/24 Verified (Lovenox) 10:00 Date of Service: Apr 26, 2024 Billing Provider: DARCIE THORNTON NP Common Visit Codes: [id number] INP/OBS CARE(HIGH) DARCIE THORNTON NP Apr 26, 2024 10:27
--- NOTE | 2024-04-26 21:45 | DVHPN2 ---
Progress Note - Dictate Date Seen: Apr 26, 2024 Medical Necessity Reason Pt with a Central, PICC or Fol: No Subjective Patient seen and examined at bedside. On supplemental oxygen Overnight events reviewed. History of Present Illness: A 68-year-old man with past medical history of hypertension, hyperlipidemia, diabetes, and depression, who came into the hospital on 04/21/24 for a diabetic foot ulcer, right testicular pain, and right back pain. [place], [place] working. He has had this foot ulcer for several months and was following with podiatry back home, but has not been in to see anyone for a couple months. He states he injured his testicle a couple days ago getting out of his truck and at that time. also pulled a muscle in his back. Testicular ultrasound was completed by ER and came back normal. Patient was admitted for further care. Pulmonary consultation requested for evaluation and management of acute hypoxic respiratory failure. Review of Systems: 14-point review of systems negative unless otherwise noted above. Past Medical History: Hypertension, hyperlipidemia, diabetes, and depression, Past Surgical History: None Medications: Reviewed. Allergies: No known drug allergies. Family History: DM in mother and father Social History: Nonsmoker. No alcohol or illicit drug use vital signs Vital Sign Date Time Temp Pulse Resp B/P (MAP) Pulse Ox O2 Delivery O2 Flow Rate FiO2 04/26/24 17:00 97.8 67 20 147/70 (95) 97 97.8 04/26/24 08:10 Nasal Cannula* 2 28 Total Intake and Output 04/25/24 04/25/24 04/26/24 15:00 23:00 07:00 Intake Total 350 ml 465 ml 110 ml Output Total 500 ml 1000 ml Balance 350 ml -35 ml -890 ml medications Current Medications Medications Dose Ordered Sig/Torres Route Start Time Stop Time Status Last Admin Dose Admin Acetaminophen/ Hydrocodone Bitart 1 tab Q4HP PRN PO 04/21/24 17:00 04/26/24 01:45 1 TAB Ondansetron HCl 4 mg Q4HP PRN IV 04/21/24 17:00 Docusate Sodium 100 mg BIDPRN PRN PO 04/21/24 17:00 04/25/24 21:50 100 MG Morphine Sulfate 2 mg Q4HPRN PRN IV 04/21/24 17:00 04/25/24 21:52 2 MG Nitroglycerin 0.4 mg Q5MINP PRN SL 04/21/24 17:00 Diagnostic Test (Pha) 1 strip ACHS 04/21/24 22:00 04/26/24 21:22 1 STRIP Insulin Human Regular HS SC 04/21/24 22:00 04/26/24 21:23 6 UNITS Insulin Human Regular AC SC 04/22/24 07:00 04/26/24 12:19 2 UNITS Dextrose 50 ml UD PRN IV 04/21/24 17:15 Amlodipine Besylate 10 mg DAILY PO 04/22/24 10:00 04/26/24 10:15 10 MG Insulin Glargine 50 units DAILY SC 04/22/24 10:00 04/26/24 10:30 50 UNITS Lisinopril 40 mg DAILY PO 04/22/24 10:00 04/26/24 10:15 40 MG Duloxetine HCl 30 mg BID PO 04/21/24 22:00 04/26/24 21:17 30 MG Acetaminophen/ Hydrocodone Bitart 1 tab Q6HPRN PRN PO 04/22/24 16:30 Carisoprodol 350 mg [id number] PRN PO 04/22/24 16:30 04/25/24 17:57 350 MG Acetaminophen 650 mg Q6HP PRN PO 04/22/24 16:45 Polyethylene Glycol 17 gm DAILYPRN PRN PO 04/25/24 13:30 04/25/24 14:50 17 GM Vancomycin HCl 0 ml @ 0 mls/hr UD IV 04/26/24 08:15 Enoxaparin Sodium 40 mg DAILY SC 04/27/24 10:00 objective Gen.: Patient lying in bed in no apparent distress. On supplemental oxygen. Head: Normocephalic, atraumatic. Eyes: EOMI/PERRLA. Ears: Normal hearing. Normal anatomy. Neck/trachea: Trachea midline, supple. Nose: Normal external anatomy. Mouth: Moist mucous membranes. Chest: Decreased air entry bilaterally. No wheezing or rhonchi. Cardiovascular: Positive S1, positive S2. Regular rate and rhythm. Abdomen: Positive bowel sounds in all 4 quadrants. Soft, non-tender, non- distended. : Deferred. Rectal: Deferred. Skin: Warm, dry. Intact. Extremities: 2+ radial pulses bilaterally. No lower extremity edema. Neuro: Awake, alert, oriented x3. No gross motor or sensory deficits. Cranial nerves II through XII intact. Gait not assessed. laboratory and microbiology Laboratory Tests 04/26/24 05:40 04/24/24 05:44 Test 04/24/24 05:44 Range/Units Serum Glucose 104 74-106 mg/dL Assessment/Plan Impression: Acute hypoxic respiratory failure Sepsis Obesity BMI 32.4 Hypertension Atelectasis Events: Remains on supplemental o2 2 LPM NC Taper O2 as tolerated Continue abx Continue bronchodilators Incentive spirometry Heparin drip Accu-Cheks for glycemic monitoring Labs and imaging reviewed. Rest of plan as noted below. Plan: ABG reviewed. Hypoxemia due to PaO2 50 mmHg. Supplemental o2 2 LPM NC Keep o2 saturation above 92% IS for atelectasis Pain control Avoid oversedation Abx F/u cultures Heparin drip Diet and lifestyle modifications for weight reduction. DVT prophylaxis. Prognosis: Guarded given patient's multiple co-morbidities. Rest of plan per hospitalist and other consultants. Thank you Dr. Edi Hawley for allowing me to participate in this patient's care. Further recommendations will depend on the patient's clinical course. Please do not hesitate to contact me if you have any questions or concerns. This medical document was created using an electronic medical record system with [employer] dictation system. Although these documentations are being carefully reviewed, there may still be some phonetic and typographical changes. The errors are purely typographical, due to imperfection on the software program, and do not reflect any compromise in the patient's medical care. Plan discussed with: Patient, Other (WILEY Velásquez) ERNIE JAVED MD Apr 26, 2024 21:45
[2024-04-27] VITALS (9 sets, daily range): BP systolic 137–147; BP diastolic 67–95; PULSE 62–101; RESP 17–22; TEMP 97.9–99; O2SAT 93–98
[2024-04-27 05:42] LABS: Hemoglobin 11.2 g/dL (13.5-17.5)
[2024-04-27 05:45] LABS: Hematocrit 32.9 % (41.0-53.0); Mean Corpuscular Hgb Conc. 34.1 g/dL (32.0-36.0); Mean Corpuscular Volume 82.2 fL (80.0-100.0); Platelet Count (auto) 626 10^3/uL (140-450); White Blood Cell 12.1 10^3/uL (4.4-10.8)
[2024-04-27 05:52] LABS: Basophils % (manual) 0 (0.0-2.0); Blast Cells 0; Metamyelocytes % 0; Myelocytes % 0; Promyelocytes % 0; Reactive Lymphocytes 0
[2024-04-27 08:28] LABS: Band Neutrophils % (manual) 3; Eosinophils % (manual) 12 (0-7); Lymphocytes % (manual) 9 (10.0-50.0); Monocytes % (manual) 9 (0-12)
[2024-04-27 08:30] LABS: Platelet Estimate Increased
--- NOTE | 2024-04-27 09:22 | DVHPN2 ---
Subjective Patient states that his symptoms are improved. Reviewed: Care Plan, H&P, Labs, Medications Changes from previous H/P or p: No Changes General: Per HPI Eyes: No Pain, No Vision change, No Conjunctivae inflammation, No Eyelid inflammation, No Other, No Redness ENT: No Ear pain, No Ear discharge, No Nose pain, No Nose discharge, No Nose congestion, No Mouth pain, No Mouth swelling, No Throat pain, No Throat swelling, No Other Cardiovascular: No Chest Pain, No Palpitations, No Orthopnea, No Paroxysmal Noc. Dyspnea, No Edema, No Lt Headedness, No Other Respiratory: No Cough, No Dry, No Shortness of breath, No SOB with excertion, No Wheezing, No Hemoptysis, No Pleuritic Pain, No Sputum, No Other Gastrointestinal: No Nausea, No Vomiting, No Abdominal Pain, No Diarrhea, No Constipation, No Melena, No Hematochezia, No Other Genitourinary: No Dysuria, No Frequency, No Incontinence, No Hematuria, No Retention; Other (testcular pain) Musculoskeletal: No other, No neck pain, No shoulder pain, No arm pain; back pain; No hand pain, No leg pain, No foot pain Skin: No Rash; Lesions (right great toe diabetic foot ulcer); No Jaundice, No Bruising, No Other Objective Vitals Vital Signs Date Time Temp Pulse Resp B/P (MAP) Pulse Ox O2 Delivery O2 Flow Rate FiO2 04/27/24 05:00 98.6 66 18 137/67 (90) 93 98.6 04/26/24 20:00 Nasal Cannula* 2 28 Intake/Output Intake and Output 04/27/24 07:00 Intake Total 2080 ml Output Total 3700 ml Balance -1620 ml Intake Oral 1650 ml IV Total 430 ml Output Urine Total 2000 ml Urine/Stool Mix 1700 ml # Bowel Movements 4 General Appearance: Alert, Oriented X3, Cooperative, mild distress HEENT: Atraumatic, PERRLA Lungs: Clear to auscultation, Normal air movement Cardiovascular: Normal S1, Normal S2 Musculoskeletal: Normal sensory function, Normal motor function Extremities: Other (Dressing dry and intact foot) Skin: Wounds (See nurse notes and pictures) Psych/Mental Status: Mental status NL, Mood NL Medications Current Medications Medications Dose Ordered Sig/Torres Route Start Time Stop Time Status Last Admin Dose Admin Acetaminophen/ Hydrocodone Bitart 1 tab Q4HP PRN PO 04/21/24 17:00 04/27/24 00:40 1 TAB Ondansetron HCl 4 mg Q4HP PRN IV 04/21/24 17:00 Docusate Sodium 100 mg BIDPRN PRN PO 04/21/24 17:00 04/25/24 21:50 100 MG Morphine Sulfate 2 mg Q4HPRN PRN IV 04/21/24 17:00 04/25/24 21:52 2 MG Nitroglycerin 0.4 mg Q5MINP PRN SL 04/21/24 17:00 Diagnostic Test (Pha) 1 strip ACHS 04/21/24 22:00 04/27/24 06:00 1 STRIP Insulin Human Regular HS SC 04/21/24 22:00 04/26/24 21:23 6 UNITS Insulin Human Regular AC SC 04/22/24 07:00 04/26/24 12:19 2 UNITS Dextrose 50 ml UD PRN IV 04/21/24 17:15 Amlodipine Besylate 10 mg DAILY PO 04/22/24 10:00 04/26/24 10:15 10 MG Lisinopril 40 mg DAILY PO 04/22/24 10:00 04/26/24 10:15 40 MG Duloxetine HCl 30 mg BID PO 04/21/24 22:00 04/26/24 21:17 30 MG Acetaminophen/ Hydrocodone Bitart 1 tab Q6HPRN PRN PO 04/22/24 16:30 Carisoprodol 350 mg [id number] PRN PO 04/22/24 16:30 04/25/24 17:57 350 MG Acetaminophen 650 mg Q6HP PRN PO 04/22/24 16:45 Polyethylene Glycol 17 gm DAILYPRN PRN PO 04/25/24 13:30 04/25/24 14:50 17 GM Vancomycin HCl 0 ml @ 0 mls/hr UD IV 04/26/24 08:15 Enoxaparin Sodium 40 mg DAILY SC 04/27/24 10:00 Insulin Glargine 45 units DAILY SC 04/27/24 10:00 Laboratory Results Laboratory Tests 04/24/24 05:44 04/27/24 05:07 Urinalysis Test 04/21/24 12:08 Urine Color Yellow (Yellow) Urine Clarity Turbid (Clear) H Urine pH 5.5 (5.0-9.0) Urine Specific [place] 1.016 (1.001-1.035) Urine Protein 1+ (Negative) H Urine Ketones Trace (Negative) Urine Blood Trace /uL (Negative) H Urine Nitrite Negative (Negative) Urine Bilirubin Negative (Negative) Urine Urobilinogen Normal mg/dL (Negative) Urine Leukocyte Esterase Negative /uL (Negative) Urine RBC 3 /hpf (0 - 3) Urine WBC 34 /hpf (0 - 3) Urine WBC Clumps Present /hpf (None Seen) Urine Squamous Epithelial Cells None seen /hpf (<5) Urine Bacteria None seen /hpf (None Seen) Urine Mucus Few (None Seen) Urine Glucose 1+ mg/dL (Normal) H Microbiology Microbiology Date/Time Source Procedure Growth Status 04/26/24 09:06 Blood Blood Culture - Preliminary NO GROWTH AFTER 24 HOURS OF INCUBATION. Resulted 04/23/24 10:52 Foot Right Gram Stain - Final Resulted 04/23/24 10:52 Foot Right Anaerobic Culture - Preliminary Resulted 04/23/24 10:52 Aerobic Culture - Final Staphylococcus aureus Resulted Labs and/or images reviewed: Labs reviewed by me, Image(s) reviewed by me Assessment/Plan Assessment/Plan Impression: -sepsis secondary to Staphylococcus aureus in the blood -diabetic foot wound, rule out osteomyelitis -chronic kidney disease stage IIIB -peripheral arterial disease -peripheral neuropathy -diabetic retinopathy -obesity -primary hypertension -Obstructive sleep apnea Plan: Events: Patient has wound culture and blood culture positive for Staphylococcus aureus. -change antibiotic therapy to vancomycin -V/Q scan -podiatry consultation : Discussed case with Dr. Mcintosh -pain management: [place] for back spasms, [place] for foot pain -antihypertensives -repeat labs in a.m. -wound care consultation -discontinue Raza catheter -recheck blood culture: Pending -CPAP at night -incentive spirometer Total time spent with patient discussing and formulating plan of care: 35 minutes. This medical document was created using an electronic medical record system with [employer] system. Although this document has been carefully reviewed, there may still be some phonetic and typographical errors. These areas are purely typographical due to imperfections of the software programs, and do not reflect any compromise in the patient's medical care. Plan discussed with: Patient, Other (RN) My Orders Orders - DARCIE THORNTON [employer]PER[employer] Procedure Category Date Status Time Enoxaparin Sodium PHA 04/27/24 In Process (Lovenox) 10:00 Insulin Lantus PHA 04/27/24 In Process (Glargine) (Lantus) 10:00 Bipap/Cpap For Sleep RT 04/27/24 Logged Apnea 09:16 Date of Service: Apr 27, 2024 Billing Provider: DARCIE THORNTON NP Common Visit Codes: [id number] INP/OBS CARE(HIGH) DARCIE THORNTON NP Apr 27, 2024 09:22
[2024-04-27] MEDS: FLORASTOR (S. BOULARDII) 250 MG CAP PO SCH (11:13)
[2024-04-27] MEDS: INSULIN LANTUS (GLARGINE) 1 /0.01ml (100units/ml) SC SCH (11:29)
[2024-04-27] MEDS: VANCOMYCIN 1.25GM/250ML 250 ML IV SCH (11:33)
[2024-04-27] MEDS: ENOXAPARIN SOD 40 MG/0.4 ML SYRINGE SC SCH (12:35)
--- NOTE | 2024-04-27 14:52 | PEER ---
Peer to Peer Review Time DATE: 04/27/24 TIME: 14:51 Review and Recommendations: Spoke with Dr. De La Cruz, approved inpatient due to sepsis due to diabetic foot and bacteremia. MARY YUSUF MD Apr 27, 2024 14:51
--- NOTE | 2024-04-27 16:58 | MEDREC ---
[facility] Intervention Section I [facility] Intervention: Review courses of therapy (PLEASE CONSIDER DEESCALATE ANTIBIOTIC BASED ON CULTURE RESULTS ) BRODERICK TAPIA PHARMACIST Apr 27, 2024 16:58
--- NOTE | 2024-04-27 18:42 | DVHPN2 ---
Progress Note - Dictate Date Seen: Apr 27, 2024 Medical Necessity Reason Pt with a Central, PICC or Fol: Yes The following are medically ne: Hernandez Catheter Reason for hernandez catheter: Strict I&O Subjective Patient seen and examined at bedside. On room air. Overnight events reviewed. History of Present Illness: A 68-year-old man with past medical history of hypertension, hyperlipidemia, diabetes, and depression, who came into the hospital on 04/21/24 for a diabetic foot ulcer, right testicular pain, and right back pain. Patient states that [place] from [place], he is here working. He has had this foot ulcer for several months and was following with podiatry back home, but has not been in to see anyone for a couple months. He states he injured his testicle a couple days ago getting out of his truck and at that time. also pulled a muscle in his back. Testicular ultrasound was completed by ER and came back normal. Patient was admitted for further care. Pulmonary consultation requested for evaluation and management of acute hypoxic respiratory failure. Review of Systems: 14-point review of systems negative unless otherwise noted above. Past Medical History: Hypertension, hyperlipidemia, diabetes, and depression, Past Surgical History: None Medications: Reviewed. Allergies: No known drug allergies. Family History: DM in mother and father Social History: Nonsmoker. No alcohol or illicit drug use vital signs Vital Sign Date Time Temp Pulse Resp B/P (MAP) Pulse Ox O2 Delivery O2 Flow Rate FiO2 04/27/24 17:00 98.4 68 22 147/73 (97) 98 98.4 04/27/24 11:09 0.0 21 04/27/24 08:00 Nasal Cannula* Total Intake and Output 04/26/24 04/26/24 04/27/24 15:00 23:00 07:00 Intake Total 430 ml 480 ml 1170 ml Output Total 1700 ml 2000 ml Balance 430 ml -1220 ml -830 ml medications Current Medications Medications Dose Ordered Sig/Torres Route Start Time Stop Time Status Last Admin Dose Admin Acetaminophen/ Hydrocodone Bitart 1 tab Q4HP PRN PO 04/21/24 17:00 04/27/24 00:40 1 TAB Ondansetron HCl 4 mg Q4HP PRN IV 04/21/24 17:00 Docusate Sodium 100 mg BIDPRN PRN PO 04/21/24 17:00 04/25/24 21:50 100 MG Morphine Sulfate 2 mg Q4HPRN PRN IV 04/21/24 17:00 04/25/24 21:52 2 MG Nitroglycerin 0.4 mg Q5MINP PRN SL 04/21/24 17:00 Diagnostic Test (Pha) 1 strip ACHS 04/21/24 22:00 04/27/24 11:34 1 STRIP Insulin Human Regular HS SC 04/21/24 22:00 04/26/24 21:23 6 UNITS Insulin Human Regular AC SC 04/22/24 07:00 04/27/24 11:28 3 UNITS Dextrose 50 ml UD PRN IV 04/21/24 17:15 Amlodipine Besylate 10 mg DAILY PO 04/22/24 10:00 04/27/24 11:15 10 MG Lisinopril 40 mg DAILY PO 04/22/24 10:00 04/27/24 11:15 40 MG Duloxetine HCl 30 mg BID PO 04/21/24 22:00 04/27/24 11:16 30 MG Carisoprodol 350 mg [id number] PRN PO 04/22/24 16:30 04/25/24 17:57 350 MG Acetaminophen 650 mg Q6HP PRN PO 04/22/24 16:45 Polyethylene Glycol 17 gm DAILYPRN PRN PO 04/25/24 13:30 04/25/24 14:50 17 GM Vancomycin HCl 0 ml @ 0 mls/hr UD IV 04/26/24 08:15 Enoxaparin Sodium 40 mg DAILY SC 04/27/24 10:00 04/27/24 12:35 40 MG Insulin Glargine 45 units DAILY SC 04/27/24 10:00 04/27/24 11:29 45 UNITS Saccharomyces Boulardii 250 mg DAILY PO 04/27/24 10:00 04/27/24 11:13 250 MG Vancomycin HCl 250 ml @ 200 mls/hr Q12H IV 04/27/24 10:00 04/27/24 11:33 200 MLS/HR objective Gen.: Patient lying in bed in no apparent distress. Breathing on room air. Head: Normocephalic, atraumatic. Eyes: EOMI/PERRLA. Ears: Normal hearing. Normal anatomy. Neck/trachea: Trachea midline, supple. Nose: Normal external anatomy. Mouth: Moist mucous membranes. Chest: Decreased air entry bilaterally. No wheezing or rhonchi. Cardiovascular: Positive S1, positive S2. Regular rate and rhythm. Abdomen: Positive bowel sounds in all 4 quadrants. Soft, non-tender, non- distended. : Deferred. Rectal: Deferred. Skin: Warm, dry. Intact. Extremities: 2+ radial pulses bilaterally. No lower extremity edema. Neuro: Awake, alert, oriented x3. No gross motor or sensory deficits. Cranial nerves II through XII intact. Gait not assessed. laboratory and microbiology Laboratory Tests 04/27/24 05:07 04/24/24 05:44 Test 04/24/24 05:44 Range/Units Serum Glucose 104 74-106 mg/dL Assessment/Plan Impression: Acute hypoxic respiratory failure Sepsis Obesity BMI 32.4 Hypertension Atelectasis Events: On room air. No respiratory distress Continue abx Continue bronchodilators Incentive spirometry Wound care Labs and imaging reviewed. Rest of plan as noted below. Plan: Supplemental o2 PRN Keep o2 saturation above 92% IS for atelectasis Pain control Avoid oversedation Abx F/u cultures Wound care Accu-Cheks for glycemic monitoring Diet and lifestyle modifications for weight reduction. DVT prophylaxis. Prognosis: Guarded given patient's multiple co-morbidities. Rest of plan per hospitalist and other consultants. Thank you Dr. Edi Hawley for allowing me to participate in this patient's care. Further recommendations will depend on the patient's clinical course. Please do not hesitate to contact me if you have any questions or concerns. This medical document was created using an electronic medical record system with [employer] dictation system. Although these documentations are being carefully reviewed, there may still be some phonetic and typographical changes. The errors are purely typographical, due to imperfection on the software program, and do not reflect any compromise in the patient's medical care. Dietary Evaluation Review Comments: 1) Consider JASPREET 1 pkt BID for wound 2) Contianue current plan of care Expected Outcomes/Goals: 1) F/U in 3-5 days Plan discussed with: Patient, Other (RN) ERNIE JAVED MD Apr 27, 2024 18:42
[2024-04-28] VITALS (9 sets, daily range): BP systolic 126–157; BP diastolic 65–79; PULSE 62–77; RESP 17–22; TEMP 98.2–99.9; O2SAT 92–97
[2024-04-28 06:27] LABS: White Blood Cell 11.8 10^3/uL (4.4-10.8)
[2024-04-28 06:29] LABS: Hematocrit 32.8 % (41.0-53.0); Hemoglobin 10.9 g/dL (13.5-17.5); Mean Corpuscular Hemoglobin 27.7 pg (28.0-32.0); Mean Corpuscular Hgb Conc. 33.2 g/dL (32.0-36.0); Mean Corpuscular Volume 83.5 fL (80.0-100.0); Platelet Count (auto) 591 10^3/uL (140-450); Red Blood Cells 3.93 10^6/uL (4.5-5.90); Red Cell Distribution Width 13.9 % (11.8-14.3)
[2024-04-28 06:35] LABS: Anion Gap 10 (5-15); Carbon Dioxide 21 mmol/L (20-31); Chloride 106 mmol/L (98-107); Potassium 3.5 mmol/L (3.5-5.1); Sodium 137 mmol/L (136-145)
[2024-04-28 06:41] LABS: BUN/Creatinine Ratio 14.3 (10.0-20.0); Blood Urea Nitrogen 19 mg/dL (9-23); Glucose 53 mg/dL (74-106)
[2024-04-28 06:46] LABS: Basophils % (manual) 0 (0.0-2.0); Blast Cells 0; Metamyelocytes % 0; Myelocytes % 0; Promyelocytes % 0; Reactive Lymphocytes 0
[2024-04-28 09:07] LABS: Band Neutrophils % (manual) 3; Eosinophils % (manual) 1 (0-7); Lymphocytes % (manual) 15 (10.0-50.0); Monocytes % (manual) 8 (0-12); Platelet Estimate Increased
[2024-04-28] MEDS ORDERED: DIPHENOXYLATE W/ATROPINE 2.5 MG TAB PO PRN (09:15)
--- NOTE | 2024-04-28 09:16 | DVHPN2 ---
Subjective Patient reports having loose stools Reviewed: Care Plan, H&P, Labs, Medications Changes from previous H/P or p: Changes General: Per HPI Eyes: No Pain, No Vision change, No Conjunctivae inflammation, No Eyelid inflammation, No Other, No Redness ENT: No Ear pain, No Ear discharge, No Nose pain, No Nose discharge, No Nose congestion, No Mouth pain, No Mouth swelling, No Throat pain, No Throat swelling, No Other Cardiovascular: No Chest Pain, No Palpitations, No Orthopnea, No Paroxysmal Noc. Dyspnea, No Edema, No Lt Headedness, No Other Respiratory: No Cough, No Dry, No Shortness of breath, No SOB with excertion, No Wheezing, No Hemoptysis, No Pleuritic Pain, No Sputum, No Other Gastrointestinal: No Nausea, No Vomiting, No Abdominal Pain, No Diarrhea, No Constipation, No Melena, No Hematochezia, No Other Genitourinary: No Dysuria, No Frequency, No Incontinence, No Hematuria, No Retention; Other (testcular pain) Musculoskeletal: No other, No neck pain, No shoulder pain, No arm pain; back pain; No hand pain, No leg pain, No foot pain Skin: No Rash; Lesions (right great toe diabetic foot ulcer); No Jaundice, No Bruising, No Other Objective Vitals Vital Signs Date Time Temp Pulse Resp B/P (MAP) Pulse Ox O2 Delivery O2 Flow Rate FiO2 04/28/24 08:45 92 Room Air* 0 21 04/28/24 05:00 65 17 143/67 (92) 04/28/24 01:00 98.5 98.5 Intake/Output Intake and Output 04/28/24 07:00 Intake Total 1340 ml Output Total 150 ml Balance 1190 ml Intake Oral 1090 ml IV Total 250 ml Output Urine Total 150 ml # Voids 2 # Bowel Movements 2 General Appearance: Alert, Oriented X3, Cooperative, mild distress HEENT: Atraumatic, PERRLA Lungs: Clear to auscultation, Normal air movement Cardiovascular: Normal S1, Normal S2 Musculoskeletal: Normal sensory function, Normal motor function Extremities: Other (Dressing dry and intact foot) Skin: Wounds (See nurse notes and pictures) Psych/Mental Status: Mental status NL, Mood NL Medications Current Medications Medications Dose Ordered Sig/Torres Route Start Time Stop Time Status Last Admin Dose Admin Acetaminophen/ Hydrocodone Bitart 1 tab Q4HP PRN PO 04/21/24 17:00 04/27/24 00:40 1 TAB Ondansetron HCl 4 mg Q4HP PRN IV 04/21/24 17:00 Docusate Sodium 100 mg BIDPRN PRN PO 04/21/24 17:00 04/25/24 21:50 100 MG Morphine Sulfate 2 mg Q4HPRN PRN IV 04/21/24 17:00 04/25/24 21:52 2 MG Nitroglycerin 0.4 mg Q5MINP PRN SL 04/21/24 17:00 Diagnostic Test (Pha) 1 strip ACHS 04/21/24 22:00 04/28/24 06:16 1 STRIP Insulin Human Regular HS SC 04/21/24 22:00 04/27/24 22:02 2 UNITS Insulin Human Regular AC SC 04/22/24 07:00 04/27/24 11:28 3 UNITS Dextrose 50 ml UD PRN IV 04/21/24 17:15 Amlodipine Besylate 10 mg DAILY PO 04/22/24 10:00 04/27/24 11:15 10 MG Lisinopril 40 mg DAILY PO 04/22/24 10:00 04/27/24 11:15 40 MG Duloxetine HCl 30 mg BID PO 04/21/24 22:00 04/27/24 22:02 30 MG Carisoprodol 350 mg [id number] PRN PO 04/22/24 16:30 04/27/24 22:08 350 MG Acetaminophen 650 mg Q6HP PRN PO 04/22/24 16:45 Polyethylene Glycol 17 gm DAILYPRN PRN PO 04/25/24 13:30 04/25/24 14:50 17 GM Vancomycin HCl 0 ml @ 0 mls/hr UD IV 04/26/24 08:15 Enoxaparin Sodium 40 mg DAILY SC 04/27/24 10:00 04/27/24 12:35 40 MG Saccharomyces Boulardii 250 mg DAILY PO 04/27/24 10:00 04/27/24 11:13 250 MG Vancomycin HCl 250 ml @ 200 mls/hr Q12H IV 04/27/24 10:00 04/27/24 22:10 200 MLS/HR Insulin Glargine 40 units DAILY SC 04/28/24 10:00 Laboratory Results Laboratory Tests 04/28/24 05:24 Chemistry Test 04/28/24 05:24 Calcium Level 9.0 mg/dL (8.7-10.4) Urinalysis Test 04/21/24 12:08 Urine Color Yellow (Yellow) Urine Clarity Turbid (Clear) H Urine pH 5.5 (5.0-9.0) Urine Specific [place] 1.016 (1.001-1.035) Urine Protein 1+ (Negative) H Urine Ketones Trace (Negative) Urine Blood Trace /uL (Negative) H Urine Nitrite Negative (Negative) Urine Bilirubin Negative (Negative) Urine Urobilinogen Normal mg/dL (Negative) Urine Leukocyte Esterase Negative /uL (Negative) Urine RBC 3 /hpf (0 - 3) Urine WBC 34 /hpf (0 - 3) Urine WBC Clumps Present /hpf (None Seen) Urine Squamous Epithelial Cells None seen /hpf (<5) Urine Bacteria None seen /hpf (None Seen) Urine Mucus Few (None Seen) Urine Glucose 1+ mg/dL (Normal) H Microbiology Microbiology Date/Time Source Procedure Growth Status 04/26/24 09:06 Blood Blood Culture - Preliminary NO GROWTH AFTER 48 HOURS OF INCUBATION. Resulted 04/23/24 10:52 Foot Right Gram Stain - Final Complete 04/23/24 10:52 Foot Right Anaerobic Culture - Final Complete 04/23/24 10:52 Aerobic Culture - Final Staphylococcus aureus Complete Labs and/or images reviewed: Labs reviewed by me, Image(s) reviewed by me Assessment/Plan Assessment/Plan Impression: -sepsis secondary to Staphylococcus aureus in the blood -diabetic foot wound, rule out osteomyelitis -chronic kidney disease stage IIIB -peripheral arterial disease -peripheral neuropathy -diabetic retinopathy -obesity -primary hypertension -Obstructive sleep apnea Plan: Events: Leukocytosis has improved. Blood culture negative for growth this time after 24 hours. Patient not tolerating CPAP at night. -continue vancomycin -Florastor, add Lomotil for loose stool -podiatry consultation -pain management: Soma for back spasms, Taylor for foot pain -antihypertensives -repeat labs in a.m. -wound care consultation -discontinue Raza catheter -recheck blood culture: Pending -CPAP at night -incentive spirometer Total time spent with patient discussing and formulating plan of care: 35 minutes. This medical document was created using an electronic medical record system with [employer] computerized dictation system. Although this document has been carefully reviewed, there may still be some phonetic and typographical errors. These areas are purely typographical due to imperfections of the software programs, and do not reflect any compromise in the patient's medical care. Plan discussed with: Patient, Other (RN) My Orders Orders - DARCIE THORNTON NP Procedure Category Date Status Time Bipap/Cpap For Sleep RT 04/27/24 Logged Apnea 09:16 Florastor (S. PHA 04/27/24 In Process Boulardii) (Florastor) 10:00 D/C Raza LETI 04/27/24 In Process 09:20 Vancomycin PHA 04/27/24 In Process 1.25gm/250ml 10:00 Vancomycin,Trough LAB 04/28/24 Logged 21:00 Vancomycin Per LETI 04/27/24 In Process Pharmacy Protoc 09:53 Dietary NOTICE 04/27/24 Transmitted Recommendations 16:34 Insulin Lantus PHA 04/28/24 In Process (Glargine) (Lantus) 10:00 Transfer Orders XFER 04/28/24 Transmitted 09:11 Basic Metabolic Panel LAB 04/29/24 Verified 04:00 Complete Blood Count LAB 04/29/24 Verified 04:00 Diphenoxylate/Atropine PHA 04/28/24 Transmitted Tablet (Lomotil T 09:15 Diphenoxylate/Atropine PHA 04/28/24 Verified Tablet (Lomotil T 09:15 Date of Service: Apr 28, 2024 Billing Provider: DARCIE THORNTON NP Common Visit Codes: [id number] INP/OBS CARE(HIGH) DARCIE THORNTON NP Apr 28, 2024 09:16
[2024-04-28] MEDS: INSULIN LANTUS (GLARGINE) 1 /0.01ml (100units/ml) SC SCH (11:41)
[2024-04-28] MEDS: DIPHENOXYLATE W/ATROPINE 2.5 MG TAB PO ONE (12:58)
[2024-04-28] MEDS: Juven Orange Powder PACKET 27.5gm PO SCH (17:31)
--- NOTE | 2024-04-28 22:28 | DVHPN2 ---
Progress Note - Dictate Date Seen: Apr 28, 2024 Medical Necessity Reason Pt with a Central, PICC or Fol: Yes The following are medically ne: Hernandez Catheter Reason for hernandez catheter: Strict I&O Subjective Patient seen and examined at bedside. On room air. Overnight events reviewed. History of Present Illness: A 68-year-old man with past medical history of hypertension, hyperlipidemia, diabetes, and depression, who came into the hospital on 04/21/24 for a diabetic foot ulcer, right testicular pain, and right back pain. Patient states that [place] is from [place] of [place], he is here working. He has had this foot ulcer for several months and was following with podiatry back home, but has not been in to see anyone for a couple months. He states he injured his testicle a couple days ago getting out of his truck and at that time. also pulled a muscle in his back. Testicular ultrasound was completed by ER and came back normal. Patient was admitted for further care. Pulmonary consultation requested for evaluation and management of acute hypoxic respiratory failure. Review of Systems: 14-point review of systems negative unless otherwise noted above. Past Medical History: Hypertension, hyperlipidemia, diabetes, and depression, Past Surgical History: None Medications: Reviewed. Allergies: No known drug allergies. Family History: DM in mother and father Social History: Nonsmoker. No alcohol or illicit drug use vital signs Vital Sign Date Time Temp Pulse Resp B/P (MAP) Pulse Ox O2 Delivery O2 Flow Rate FiO2 04/28/24 17:00 98.3 69 20 144/70 (94) 95 98.3 04/28/24 08:45 Room Air* 0 21 Total Intake and Output 04/27/24 04/27/24 04/28/24 15:00 23:00 07:00 Intake Total 240 ml 450 ml 650 ml Output Total 150 ml Balance 240 ml 300 ml 650 ml medications Current Medications Medications Dose Ordered Sig/Torres Route Start Time Stop Time Status Last Admin Dose Admin Acetaminophen/ Hydrocodone Bitart 1 tab Q4HP PRN PO 04/21/24 17:00 04/27/24 00:40 1 TAB Ondansetron HCl 4 mg Q4HP PRN IV 04/21/24 17:00 Docusate Sodium 100 mg BIDPRN PRN PO 04/21/24 17:00 04/25/24 21:50 100 MG Morphine Sulfate 2 mg Q4HPRN PRN IV 04/21/24 17:00 04/25/24 21:52 2 MG Nitroglycerin 0.4 mg Q5MINP PRN SL 04/21/24 17:00 Diagnostic Test (Pha) 1 strip ACHS 04/21/24 22:00 04/28/24 17:00 1 STRIP Insulin Human Regular HS SC 04/21/24 22:00 04/27/24 22:02 2 UNITS Insulin Human Regular AC SC 04/22/24 07:00 04/28/24 13:21 2 UNITS Dextrose 50 ml UD PRN IV 04/21/24 17:15 Amlodipine Besylate 10 mg DAILY PO 04/22/24 10:00 04/28/24 11:30 10 MG Lisinopril 40 mg DAILY PO 04/22/24 10:00 04/28/24 11:30 40 MG Duloxetine HCl 30 mg BID PO 04/21/24 22:00 04/28/24 11:29 30 MG Carisoprodol 350 mg [id number] PRN PO 04/22/24 16:30 04/27/24 22:08 350 MG Acetaminophen 650 mg Q6HP PRN PO 04/22/24 16:45 Polyethylene Glycol 17 gm DAILYPRN PRN PO 04/25/24 13:30 04/25/24 14:50 17 GM Vancomycin HCl 0 ml @ 0 mls/hr UD IV 04/26/24 08:15 Enoxaparin Sodium 40 mg DAILY SC 04/27/24 10:00 04/28/24 11:29 40 MG Saccharomyces Boulardii 250 mg DAILY PO 04/27/24 10:00 04/28/24 11:29 250 MG Insulin Glargine 40 units DAILY SC 04/28/24 10:00 04/28/24 11:41 40 UNITS Diphenoxylate HCl/ Atropine 2.5 mg PRN PRN PO 04/28/24 09:15 Enteral Nutritional Formula 27.5 gm BIDWM PO 04/28/24 18:00 04/28/24 17:31 27.5 GM Vancomycin HCl 250 ml @ 200 mls/hr Q12H IV 04/29/24 05:00 objective Gen.: Patient lying in bed in no apparent distress. Breathing on room air. Head: Normocephalic, atraumatic. Eyes: EOMI/PERRLA. Ears: Normal hearing. Normal anatomy. Neck/trachea: Trachea midline, supple. Nose: Normal external anatomy. Mouth: Moist mucous membranes. Chest: Decreased air entry bilaterally. No wheezing or rhonchi. Cardiovascular: Positive S1, positive S2. Regular rate and rhythm. Abdomen: Positive bowel sounds in all 4 quadrants. Soft, non-tender, non- distended. : Deferred. Rectal: Deferred. Skin: Warm, dry. Intact. Extremities: 2+ radial pulses bilaterally. No lower extremity edema. Neuro: Awake, alert, oriented x3. No gross motor or sensory deficits. Cranial nerves II through XII intact. Gait not assessed. laboratory and microbiology Laboratory Tests 04/28/24 05:24 Test 04/28/24 05:24 Range/Units Serum Glucose 53 L 74-106 mg/dL Assessment/Plan Impression: Acute hypoxic respiratory failure Sepsis Obesity BMI 32.4 Hypertension Atelectasis Events: Weaned off supplemental O2, on room air. No respiratory distress Continue abx Continue bronchodilators Incentive spirometry Wound care Disposition per hospitalist. Labs and imaging reviewed. Rest of plan as noted below. Plan: Supplemental o2 PRN Keep o2 saturation above 92% IS for atelectasis Pain control Avoid oversedation Abx F/u cultures Wound care Accu-Cheks for glycemic monitoring Diet and lifestyle modifications for weight reduction. DVT prophylaxis. Prognosis: Guarded given patient's multiple co-morbidities. Rest of plan per hospitalist and other consultants. Thank you Dr. Edi Hawley for allowing me to participate in this patient's care. Further recommendations will depend on the patient's clinical course. Please do not hesitate to contact me if you have any questions or concerns. This medical document was created using an electronic medical record system with [employer] dictation system. Although these documentations are being carefully reviewed, there may still be some phonetic and typographical changes. The errors are purely typographical, due to imperfection on the software program, and do not reflect any compromise in the patient's medical care. Dietary Evaluation Review Comments: 1) Consider JASPREET 1 pkt BID for wound 2) Contianue current plan of care Expected Outcomes/Goals: 1) F/U in 3-5 days Plan discussed with: Patient, Other (WILEY Padilla) ERNIE JAVED MD Apr 28, 2024 22:28
[2024-04-29 01:00] VITALS: BP 148/77; PULSE 66; RESP 20; TEMP 97.3; O2SAT 98
[2024-04-29 04:00] LABS: Basophils % (auto) 0.5 % (0.0-2.0); Eosinophils # (auto) 0.4 10 ^3/uL (0-0.8); Hematocrit 32.9 % (41.0-53.0); Lymphocytes # (auto) 1.4 10 ^3/uL (0.4-5.4); Mean Corpuscular Volume 82.7 fL (80.0-100.0); Monocytes # (auto) 0.9 10 ^3/uL (0-1.3); Red Blood Cells 3.98 10^6/uL (4.5-5.90)
[2024-04-29 04:02] LABS: Basophils # (auto) 0.1 10 ^3/uL (0-0.2); Eosinophils % (auto) 3.8 % (0.0-7.0); Hemoglobin 11.2 g/dL (13.5-17.5); Lymphocytes % (auto) 13.6 % (10.0-50.0); Mean Corpuscular Hemoglobin 28.1 pg (28.0-32.0); Monocytes % (auto) 8.6 % (0.0-12.0); Neutrophils # (auto) 7.5 10 ^3/uL (1.6-8.6); Neutrophils % (auto) 73.5 % (37.0-80.0); Platelet Count (auto) 608 10^3/uL (140-450); White Blood Cell 10.2 10^3/uL (4.4-10.8)
[2024-04-29 04:13] LABS: Chloride 107 mmol/L (98-107); Potassium 3.8 mmol/L (3.5-5.1); Sodium 139 mmol/L (136-145)
[2024-04-29 04:14] LABS: Anion Gap 8 (5-15); Calcium 9.1 mg/dL (8.7-10.4); Carbon Dioxide 24 mmol/L (20-31)
[2024-04-29 04:19] LABS: Blood Urea Nitrogen 18 mg/dL (9-23); Glucose 67 mg/dL (74-106)
[2024-04-29] MEDS: VANCOMYCIN 1.25GM/250ML 250 ML IV SCH (04:42)
[2024-04-29 05:00] VITALS: BP 138/72; PULSE 73; RESP 20; TEMP 99.2; O2SAT 97
[2024-04-29 07:48] VITALS: O2SAT 98
[2024-04-29 08:00] VITALS: PULSE 71; RESP 17; O2SAT 93
[2024-04-29 09:00] VITALS: BP 143/71; PULSE 71; RESP 17; TEMP 97.9; O2SAT 93
[2024-04-29] MEDS ORDERED: HYDR-4902 PO (09:14)
[2024-04-29] MEDS ORDERED: DOCU-94 PO (09:14)
[2024-04-29] MEDS ORDERED: LEVO500T91 PO (09:14)
--- NOTE | 2024-04-29 09:22 | DVHDS2 ---
Discharge Summary Date of Admission Apr 21, 2024 at 16:51 Date of Discharge: Apr 29, 2024 Admitting Diagnosis Diabetic foot ulcer Labs/Diagnostic Data: Laboratory Results Test 04/29/24 06:08 04/29/24 03:50 04/28/24 05:24 04/27/24 05:07 POC Glucose 99 mg/dl (70-106) White Blood Count 10.2 10^3/uL (4.4-10.8) Red Blood Count 3.98 10^6/uL (4.5-5.90) Hemoglobin 11.2 g/dL (13.5-17.5) Hematocrit 32.9 % (41.0-53.0) Mean Corpuscular Volume 82.7 fL (80.0-100.0) Mean Corpuscular Hemoglobin 28.1 pg (28.0-32.0) Mean Corpuscular Hemoglobin Concent 34.0 g/dL (32.0-36.0) Red Cell Distribution Width 14.0 % (11.8-14.3) Platelet Count 608 10^3/uL (140-450) Mean Platelet Volume 7.2 fL (6.9-10.8) Neutrophils (%) (Auto) 73.5 % (37.0-80.0) Lymphocytes (%) (Auto) 13.6 % (10.0-50.0) Monocytes (%) (Auto) 8.6 % (0.0-12.0) Eosinophils (%) (Auto) 3.8 % (0.0-7.0) Basophils (%) (Auto) 0.5 % (0.0-2.0) Neutrophils # (Auto) 7.5 10 ^3/uL (1.6-8.6) Lymphocytes # (Auto) 1.4 10 ^3/uL (0.4-5.4) Monocytes # (Auto) 0.9 10 ^3/uL (0-1.3) Eosinophils # (Auto) 0.4 10 ^3/uL (0-0.8) Basophils # (Auto) 0.1 10 ^3/uL (0-0.2) Nucleated Red Blood Cells 0.0 % Sodium Level 139 mmol/L (136-145) Potassium Level 3.8 mmol/L (3.5-5.1) Chloride Level 107 mmol/L (98-107) Carbon Dioxide Level 24 mmol/L (20-31) Anion Gap 8 (5-15) Blood Urea Nitrogen 18 mg/dL (9-23) Creatinine 1.29 mg/dL (0.700-1.30) Glomerular Filtration Rate Calc 61 mL/min (>90) BUN/Creatinine Ratio 14.0 (10.0-20.0) Serum Glucose 67 mg/dL (74-106) Calcium Level 9.1 mg/dL (8.7-10.4) Vancomycin Level Trough 22.5 ug/mL (5-10) Differential Total Cells Counted 100.0 (100) Neutrophils % (Manual) 73 (37.0-80.0) Band Neutrophils % (Manual) 3 Lymphocytes % (Manual) 15 (10.0-50.0) Monocytes % (Manual) 8 (0-12) Eosinophils % (Manual) 1 (0-7) Basophils % (Manual) 0 (0.0-2.0) Metamyelocytes % (manual) 0 Myelocytes % (Manual) 0 Promyelocytes % (Manual) 0 Blast Cells % (Manual) 0 Reactive Lymphocytes 0 Platelet Estimate Increased Random Vancomycin Level 12.3 ug/mL (5-10) Test 04/26/24 05:40 04/24/24 13:05 04/24/24 05:44 04/22/24 05:17 Prothrombin Time 11.6 sec (9.3-11.8) Prothrombin Time INR 1.10 (0.9-1.15) Activated Partial Thromboplast Time 54.7 SEC (24.5-34.5) Blood Gas Specimen Type Arterial Blood Gas Sample Site Right radial Blood Gas Patient Temperature 37.0 Arterial Blood Date Drawn [id number] Arterial Blood pH 7.461 (7.350-7.450) Arterial Blood Partial Pressure CO2 31.4 mmHg (35.0-48.0) Arterial Blood Partial Pressure O2 50.2 mmHg (83.0-108.0) Arterial Blood HCO3 21.9 mmol/L (21.0-28.0) Arterial Blood Oxygen Saturation 85.7 % (94.0-98.0) Arterial Blood Base Excess -1.3 mmol/L (-2.0-3.0) Arterial Blood Oxyhemoglobin 84.6 % (94.0-98.0) Arterial Blood Carboxyhemoglobin 1.1 % (0.5-1.5) Arterial Blood Methemoglobin 0.2 % (0.0-1.5) Efrain Test Yes Blood Gas Total Hemoglobin 11.10 g/dL (13.5-17.5) Blood Gas Modality Room air FiO2 % 21.0 Blood Gas Critical Value Read Back Yes. Blood Gas Notified Whom annelise Hawley md. Blood Gas Notified Time [id number] Blood Gas Notified By jordon Alvarez rt. Large Platelets Few Erythrocyte Sedimentation Rate 92 mm/hr (0-20) Total Bilirubin 0.6 mg/dL (0.2-1.0) Aspartate Amino Transferase (AST) 12 U/L (13-40) Alanine Aminotransferase (ALT) 16 U/L (7-40) Alkaline Phosphatase 111 U/L (46-116) C-Reactive Protein High Sensitivity > 20.00 mg/dL (<1.0) Total Protein 6.3 g/dL (5.7-8.2) Albumin 3.6 g/dL (3.2-4.8) Test 04/21/24 19:32 04/21/24 13:48 04/21/24 12:08 Hemoglobin A1c 9.8 % A1C (<5.7) Beta-Hydroxybutyric Acid 0.325 mmol/L (< 0.4) Urine Color Yellow (Yellow) Urine Clarity Turbid (Clear) Urine pH 5.5 (5.0-9.0) Urine Specific [place] 1.016 (1.001-1.035) Urine Protein 1+ (Negative) Urine Ketones Trace (Negative) Urine Blood Trace /uL (Negative) Urine Nitrite Negative (Negative) Urine Bilirubin Negative (Negative) Urine Urobilinogen Normal mg/dL (Negative) Urine Leukocyte Esterase Negative /uL (Negative) Urine RBC 3 /hpf (0 - 3) Urine WBC 34 /hpf (0 - 3) Urine WBC Clumps Present /hpf (None Seen) Urine Squamous Epithelial Cells None seen /hpf (<5) Urine Bacteria None seen /hpf (None Seen) Urine Mucus Few (None Seen) Urine Glucose 1+ mg/dL (Normal) Other Laboratory Tests 04/29/24 03:50 Brief Hx & Hospital Course: History of Present Illness Carlos Du is a 68-year-old male with past medical history of hypertension, hyperlipidemia, diabetes, and depression, who came into the hospital for a diabetic foot ulcer, right testicular pain, and right back pain. [place], [place] working. He has had this foot ulcer for several months and was following with podiatry back home, but has not been in to see anyone for a couple months. He states he injured his testicle a couple days ago getting out of his truck and at that time he also pulled a muscle in his back. Testicular ultrasound was completed by ER and came back normal. Course of hospitalization: Patient was started on empiric antibiotic therapy with Zosyn and clindamycin. Podiatry consultation was obtained. Patient underwent I and D of the right great toe. Patient's cultures came back positive for Staphylococcus aureus in both the wound as well as blood. Patient's antibiotics were changed to vancomycin. Patient's white blood cell count has improved. Patient has been afebrile. Repeat blood culture has been negative for 48 hours. Patient was pass his bowels, ambulated, as well as tolerated oral intake. Patient was found to have obstructive sleep apnea, which the patient was verified that he was using CPAP prior to losing his belongings several years ago. Attempts were made to use a CPAP in the hospital, for which the patient states he did not tolerate. He is agreeable to be discharged home , and we will follow up with Podiatry in one week, discharge Clinic in one week, as well as be continued on antibiotic therapy with Levaquin 500 mg p.o. for additional seven days. He will receive his 1st dose in the hospital to verify tolerance. He will also be prescribed pain management in the form of [place] 5/325 q.8 hours as needed for [id number] pain. He will also be provided stool softeners in the form of Colace 100 mg p.o. daily as needed for constipation x2 days. He is instructed to not get his surgical wound site wet until he follows up with Podiatry. The patient was agreeable with discharge plan. All questions answered. Physical exam General: Alert and Oriented x3. No acute distress. Well-nourished. Eyes: EOMI. Anicteric. HENT: Moist mucous membranes. Lungs: Clear to auscultation bilaterally. No accessory muscle use. Cardiovascular: Regular rate and rhythm. No murmur. No JVD. Abdomen: Soft, non-tender and non-distended. No palpable masses. Extremities: No edema. Non-tender. Skin: No rashes or lesions. Warm. Dressing dry and intact to foot Neurologic: No focal neurological deficits. CN II-XII grossly intact, but not individually tested. Psychiatric: Cooperative. Appropriate mood and affect. Total time spent with patient discussing and formulating plan of care: 35 minutes. This medical document was created using an electronic medical record system with [employer] dictation system. Although this document has been carefully reviewed, there may still be some phonetic and typographical errors. These areas are purely typographical due to imperfections of the software programs, and do not reflect any compromise in the patient's medical care. Consults/Reason for consult Podiatry: Diabetic foot ulcer Operations or Procedures 04/23/2024: I and D of right great toe Condition at Discharge: Good Final Diagnosis/Problems List Sepsis secondary to Staphylococcus aureus in wound and blood Secondary Diagnosis: -sepsis secondary to Staphylococcus aureus in the blood -diabetic foot wound, rule out osteomyelitis -chronic kidney disease stage IIIB -peripheral arterial disease -peripheral neuropathy -diabetic retinopathy -obesity -primary hypertension -Obstructive sleep apnea Discharge Disposition: Home Discharge Instruct/Medications Diet: Consistent carbohydrate, Cardiac 2g Na,low cholest Activity: No Restrictions, As Tolerated Follow Up/Referral: Follow up with Podiatry in one week Discharge Clinic in one week Medications: Levaquin 500 mg p.o. daily times seven days [place] 5/325 q.8 hours as needed for [id number] pain Continue all previous home medications 36 Discharge Statement: "Patient was advised to return to the ER or call 911 if any headaches, dizziness, shortness of breath, chest pain, abdominal pain, bleeding, fevers, or worsening of medical condition. Patient was counseled about treatment plan, medications, possible side effects, patientverbalized understanding. All questions were answered to the best of my ability. This discharge took greater then 30 minutes in planning, reviewing documentation, counseling the patient, and discussing with other team members." ASSESSMENT ASSESSMENT Assessment Sepsis secondary to Staphylococcus aureus in wound and blood Date of Service: Apr 29, 2024 Billing Provider: DARCIE THORNTON NP Common Visit Codes: 62322-AGX/OBS DISCH DAY >30min DARCIE THORNTON NP Apr 29, 2024 09:22
[2024-04-29] MEDS: levoFLOXacin 500 MG TAB PO ONE (11:08)
[2024-04-29 11:21] VITALS: BP 143/71; PULSE 71; RESP 17; TEMP 97.9; O2SAT 93
--- NOTE | 2024-04-29 21:23 | DVHPN2 ---
Progress Note - Dictate Date Seen: Apr 29, 2024 Medical Necessity Reason Pt with a Central, PICC or Fol: Yes The following are medically ne: Hernandez Catheter Reason for hernandez catheter: Strict I&O Subjective Patient seen and examined at bedside. On room air. Overnight events reviewed. History of Present Illness: A 68-year-old man with past medical history of hypertension, hyperlipidemia, diabetes, and depression, who came into the hospital on 04/21/24 for a diabetic foot ulcer, right testicular pain, and right back pain. Patient states that [place], he is here working. He has had this foot ulcer for several months and was following with podiatry back home, but has not been in to see anyone for a couple months. He states he injured his testicle a couple days ago getting out of his truck and at that time. also pulled a muscle in his back. Testicular ultrasound was completed by ER and came back normal. Patient was admitted for further care. Pulmonary consultation requested for evaluation and management of acute hypoxic respiratory failure. Review of Systems: 14-point review of systems negative unless otherwise noted above. Past Medical History: Hypertension, hyperlipidemia, diabetes, and depression, Past Surgical History: None Medications: Reviewed. Allergies: No known drug allergies. Family History: DM in mother and father Social History: Nonsmoker. No alcohol or illicit drug use vital signs Vital Sign Date Time Temp Pulse Resp B/P (MAP) Pulse Ox O2 Delivery O2 Flow Rate FiO2 04/29/24 11:21 97.9 71 17 93 04/29/24 10:53 143/71 04/29/24 08:00 Room Air* 0 21 Total Intake and Output 04/28/24 04/28/24 04/29/24 15:00 23:00 07:00 Intake Total 1286 ml 1230 ml Output Total 1350 ml Balance 1286 ml -120 ml objective Gen.: Patient lying in bed in no apparent distress. Breathing on room air. Head: Normocephalic, atraumatic. Eyes: EOMI/PERRLA. Ears: Normal hearing. Normal anatomy. Neck/trachea: Trachea midline, supple. Nose: Normal external anatomy. Mouth: Moist mucous membranes. Chest: Decreased air entry bilaterally. No wheezing or rhonchi. Cardiovascular: Positive S1, positive S2. Regular rate and rhythm. Abdomen: Positive bowel sounds in all 4 quadrants. Soft, non-tender, non- distended. : Deferred. Rectal: Deferred. Skin: Warm, dry. Intact. Extremities: 2+ radial pulses bilaterally. No lower extremity edema. Neuro: Awake, alert, oriented x3. No gross motor or sensory deficits. Cranial nerves II through XII intact. Gait not assessed. laboratory and microbiology Laboratory Tests 04/29/24 03:50 Test 04/29/24 03:50 Range/Units Serum Glucose 67 L 74-106 mg/dL Assessment/Plan Impression: Acute hypoxic respiratory failure Sepsis Obesity BMI 32.4 Hypertension Atelectasis Events: Breathing on room air. No respiratory distress Continue abx Incentive spirometry Wound care Patient is stable for discharge from the pulmonary standpoint. Disposition per hospitalist. Labs and imaging reviewed. Rest of plan as noted below. Plan: Supplemental o2 PRN Keep o2 saturation above 92% IS for atelectasis Pain control Avoid oversedation Abx F/u cultures Wound care Accu-Cheks for glycemic monitoring Diet and lifestyle modifications for weight reduction. DVT prophylaxis. Prognosis: Guarded given patient's multiple co-morbidities. Rest of plan per hospitalist and other consultants. Thank you Dr. Edi Hawley for allowing me to participate in this patient's care. Further recommendations will depend on the patient's clinical course. Please do not hesitate to contact me if you have any questions or concerns. This medical document was created using an electronic medical record system with [employer] dictation system. Although these documentations are being carefully reviewed, there may still be some phonetic and typographical changes. The errors are purely typographical, due to imperfection on the software program, and do not reflect any compromise in the patient's medical care. Dietary Evaluation Review Comments: 1) Consider JASPREET 1 pkt BID for wound 2) Contianue current plan of care Expected Outcomes/Goals: 1) F/U in 3-5 days Plan discussed with: Patient, Other (WILEY Bobo) ERNIE JAVED MD Apr 29, 2024 21:23
[2024-04-29] MEDS ORDERED: VANCOMYCIN 1.25GM/250ML 250 ML IV SCH (22:00)
== END 2024-04-29 14:15 | disposition home or self-care (01) | DRG 853 ==
LOC: ER 11:20 → OVERFLOW 16:51 → EAST 18:55 → TELE-E-ADS 04-27 20:17 → EAST 04-28 23:20
PROVIDERS: ADMIT Nurse Practitioner Family; ATTEND Nurse Practitioner Acute Care
PROC: 0Q9Q0ZZ Drainage of Right Toe Phalanx, Open Approach (ICD-10-PCS; principal; 2024-04-23 10:39)
PROC: 5A09357 Assistance with Respiratory Ventilation, Less than 24 Consecutive Hours, Continuous Positive Airway Pressure (ICD-10-PCS; 2024-04-27)
DX: A41.01 Sepsis due to Methicillin susceptible Staphylococcus aureus (principal); N17.0 Acute kidney failure with tubular necrosis; L02.611 Cutaneous abscess of right foot; J98.11 Atelectasis; L03.115 Cellulitis of right lower limb; F32.A Depression, unspecified; E78.5 Hyperlipidemia, unspecified; E11.65 Type 2 diabetes mellitus with hyperglycemia; E11.621 Type 2 diabetes mellitus with foot ulcer; N50.82 Scrotal pain; E11.22 Type 2 diabetes mellitus with diabetic chronic kidney disease; E11.319 Type 2 diabetes mellitus with unspecified diabetic retinopathy without macular edema; E11.51 Type 2 diabetes mellitus with diabetic peripheral angiopathy without gangrene; E66.9 Obesity, unspecified; I12.9 Hypertensive chronic kidney disease with stage 1 through stage 4 chronic kidney disease, or unspecified chronic kidney disease; N18.32 Chronic kidney disease, stage 3b; G47.33 Obstructive sleep apnea (adult) (pediatric); Z68.32 Body mass index [BMI] 32.0-32.9, adult; Z83.3 Family history of diabetes mellitus; B95.61 Methicillin susceptible Staphylococcus aureus infection as the cause of diseases classified elsewhere
CPT/HCPCS: 36415; 36600; 71045; 73630; 76870; 80048; 80053; 80202; 81001; 82010; 82565; 82805; 82962; 83036; 85007; 85025; 85027; 85610; 85652; 85730; 86141; 87040; 87070; 87075; 87077; 87186; 87205; 94660; G0378; J1815; J2405; J2543; J2704; J3490